=== PATIENT | female | born 1945 | race Caucasian/White ===

== ENCOUNTER 2016-12-10 16:04 | Observation (INO) | payer MEDICARE ==
[2016-12-10] MEDS ORDERED: IPRATROPIUM/ALBUTEROL (0.5MG/3MG) NEB INH ONE (17:04)
--- NOTE | 2016-12-10 17:11 | Emergency Department Record ---
History of Present Illness - General Chief complaint: Rash Stated complaint: RASH AND [place] Time Seen by Provider: 12/10/16 17:04 Source: Patient Mode of Arrival: Wheelchair Limitations: No limitations - History of Present Illness Initial comments: 71 yo female presents to ED with a CC of shortness of breath symptoms for the past 4-5 days. Patient reports that she saw her PCP 4 days ago, was started on Prednisone for her symptoms. Patient reports that her symptoms have not significantly improved however, and that she is out of breath with minimal effort. Patient denies chest pain, fevers, chills, or cough symptoms. Patient is unsure if she has COPD or not. Patient also complains of a rash to the left inner thigh region that has been present for several days as well. MD complaint: Rash Onset/Timin -: Days(s) Location: LLE (inguinal region) Severity: Moderate Severity scale (1-10): 7 Quality: Burning Consistency: Constant Improves with: None Worsens with: None Context: New medication Associated symptoms: Cough, Itching, Shortness of breath Treatments Prior to Arrival: None - Related Data Home Medications Medication Instructions Recorded Confirmed Last Taken Folic Acid 1 mg PO QD tab 01/26/16 12/10/16 12/10/16 Methotrexate Sodium [Methotrexate] 0.8 ml IM QWEEK ml 05/04/16 12/10/16 Cholecalciferol (Vitamin D3) 4,000 unit PO DAILY 12/10/16 12/10/16 12/10/16 [Vitamin D3] Previous Rx's Medication Instructions Recorded Aspirin [Aspirin EC] 81 mg PO DAILY #30 tablet. 01/19/15 Meclizine HCl [Antivert] 25 mg PO Q8H #21 tablet 10/02/15 Allergies Allergy/AdvReac Type Severity Reaction Status Date / Time No Known Drug Allergies Allergy Verified 12/10/16 16:32 Travel Screening - Travel/Exposure Within Last 30 Days Have you traveled within the last 30 days?: No Review of Systems Constitutional: Denies: Chills, Fever, Malaise, Night sweats Eyes: Denies: Eye discharge, Eye pain ENT: Denies: Congestion, Ear pain, Epistaxis Respiratory: Reports: Dyspnea. Denies: Wheezes Cardiovascular: Reports: Dyspnea on exertion. Denies: Chest pain, Palpitations Endocrine: Denies: Fatigue, Heat or cold intolerance Gastrointestinal: Denies: Abdominal pain, Nausea, Vomiting Genitourinary: Denies: Dysuria, Frequency, Hematuria, Incontinence Musculoskeletal: Denies: Arthralgia, Back pain, Gout, Joint swelling Skin: Denies: Bruising, Change in color Neurological: Denies: Abnormal gait, Confusion, Headache, Seizure Psychiatric: Denies: Anxiety Hematological/Lymphatic: Denies: Anemia, Blood Clots Past Medical History - SOCIAL HISTORY Smoking Status: Former smoker Alcohol Use: None Drug Use: None - RESPIRATORY Hx Respiratory Disorders: No Hx Sleep Apnea: Yes Hx of CPAP: Yes - CARDIOVASCULAR Hx Cardio Disorders: Yes Hx Hypertension: Yes - NEURO Hx Neuro Disorders: No - GI Hx GI Disorders: Yes Hx GI Bleed: Yes Hx Rectal Bleeding: Yes - Hx Genitourinary Disorders: No - ENDOCRINE Hx Endocrine Disorders: Yes Hx Diabetes: Yes Hx Thyroid Disease: Yes Comment:: borderline diabetic - MUSCULOSKELETAL Hx Musculoskeletal Disorders: Yes Hx Arthritis: Yes - PSYCH Hx Psych Problems: No - HEMATOLOGY/ONCOLOGY Hx Hematology/Oncology Disorders: No Family Medical History Any Significant Family History?: Yes Hx Alcohol Use: Father Hx Cancer: Father, Mother Hx Diabetes: Mother, Brother/Sister Hx Heart Disease: Mother, Brother/Sister Hx Kidney Disease: Father Hx Liver Disease: Brother/Sister Physical Exam - General General Appearance: Alert, Oriented x3, Cooperative, Moderate distress Limitations: No limitations - Head Head exam: Atraumatic, Normocephalic, Normal inspection Head exam detail: negative: Abrasion, Contusion, Baugh's sign, General tenderness, Hematoma, Laceration - Eye Eye exam: Normal appearance. negative: Conjunctival injection, Periorbital swelling, Periorbital tenderness, Scleral icterus - ENT Ear exam: negative: Auricular hematoma, Auricular trauma Nasal Exam: negative: Active bleeding, Discharge, Dried blood, Foreign body Mouth exam: negative: Drooling, Laceration, Muffled voice, Tongue elevation - Neck Neck exam: Normal inspection. negative: Meningismus, Tenderness - Respiratory Respiratory exam: Wheezes. negative: Respiratory distress, Rhonchi, Stridor - Cardiovascular Cardiovascular Exam: Regular rate, Normal rhythm, Normal heart sounds - GI/Abdominal GI/Abdominal exam: Soft. negative: Rebound, Rigid, Tenderness - Rectal Rectal exam: Deferred - exam: Deferred - Extremities Extremities exam: negative: Calf tenderness, Pedal edema, Tenderness - Back Back exam: Denies: CVA tenderness (R), CVA tenderness (L) - Neurological Neurological exam: Alert, Normal gait, Oriented X3 - Psychiatric Psychiatric exam: Normal affect, Normal mood - Skin Skin exam: Rash, Other (excoriated rash to the left inguinal groin region c/w yeast dermatitis) Type of lesion: negative: abrasion Course Vital Signs 12/10/16 16:26 Temperature 97.7 F Pulse Rate 95 H Respiratory 18 Rate Blood Pressure 177/94 Pulse Ox 95 - Reevaluation(s) Reevaluation #1: 12/10/16 17:26 EKG: NSR 89 Normal axis, normal intervals No acute ST-T wave changes are present Reevaluation #2: 12/10/16 18:43 CXR: No acute process Labs reviewed and are grossly unremarkable for an acute process. Will trial ambulation biox at this time. Reevaluation #3: 12/10/16 19:25 Attempted ambulation biox, patient oxygen saturation was 95-95%, patient became very dyspnic on examination. Will admit for observation and further evaluation of her COPD exacerbation. Case was discussed with Dania Shields, will accept admission for further evaluation. 12/10/16 19:28 Medical Decision Making - Lab Data Result diagrams: 12/10/16 17:26 12/10/16 17:26 Disposition Disposition: Admit Clinical Impression: COPD exacerbation, Yeast dermatitis Disposition: Still a Patient at [facility] Decision to Admit: Admit from ER Decision to Admit Date: 12/10/16 Decision to Admit Time: 19:28 Condition: (2) Stable Forms: Patient Portal Access Time of Disposition: 19:28
[2016-12-10 18:08] LABS: HEMATOCRIT 36.1 % (35.0-47.0); HEMOGLOBIN 11.5 gm/dl (11.6-16.0); MEAN CELL VOLUME 100.8 fl (81-97); MEAN CORPUSCULAR HEMOGLOBIN 32.1 pg (27-33); MEAN CORPUSCULAR HGB CONC 31.9 g/dl (32-36); MEAN PLATELET VOLUME 10.9 fl (7.4-10.4); PLATELET COUNT 274 K/uL (130-400); RED BLOOD COUNT 3.58 M/uL (3.80-5.40); RED CELL DISTRIBUTION WIDTH 14.9 % (11.5-14.5)
[2016-12-10 18:19] LABS: ALB/GLOB RATIO 1.5 (1.1-1.8); ALBUMIN 4.4 gm/dL (3.5-5.0); ALKALINE PHOSPHATASE 104 U/L (38-126); ALT/SGPT 28 U/L (9-52); ANION GAP 18.3 (7-16); AST/SGOT 18 U/L (14-36); BLOOD UREA NITROGEN 20 mg/dL (7-17); CARBON DIOXIDE 24.7 mmol/L (22-30); CREATINE PHOSPHOKINASE 31 U/L (30-135); CREATININE 0.9 mg/dL (0.52-1.04); EST GLOMERULAR FILTRATION RATE > 60 ml/min; GLUCOSE,RANDOM 139 mg/dL (70-110); TOTAL PROTEIN 7.3 gm/dL (6.3-8.2)
[2016-12-10 18:31] LABS: CKMB 0.5 ug/L (0-6); TROPONIN I < 0.012 ng/mL (0.00-0.034)
[2016-12-10] MEDS ORDERED: METHYLPREDNISOLONE PF 125MG/VIAL IVP ONE (19:29)
[2016-12-10] MEDS ORDERED: FOLIC ACID 1 MG TABLET PO SCH (20:55)
[2016-12-10] MEDS ORDERED: LEVOTHYROXINE SODIUM 50 MCG TABLET PO SCH (20:55)
[2016-12-10] MEDS ORDERED: IPRATROPIUM/ALBUTEROL (0.5MG/3MG) NEB INH PRN (20:55)
[2016-12-10] MEDS ORDERED: Non-Formulary MISC (Lisinopril/Hydrochlorothiazide [Lisinopril-Hctz 20-25 Mg Tab] 1 TAB) PO SCH (20:55)
[2016-12-10] MEDS ORDERED: Non-Formulary MISC (Atorvastatin Calcium [Atorvastatin Calcium] 40 MG) PO SCH (20:55)
[2016-12-10] MEDS ORDERED: 0.9 % SODIUM CHLORIDE 1000ML 1,000 ML IV PRN (20:55)
[2016-12-10] MEDS: MECLIZINE 25 MG TABLET PO SCH (22:00)
[2016-12-10] MEDS: NYSTATIN 15 GM POWDER TP SCH ×2 (22:00→22:47)
[2016-12-10] MEDS: ALBUTEROL SULFATE (0.083%) 2.5 MG/3 ML NEB INH SCH (22:21)
[2016-12-10] MEDS ORDERED: FLUCONAZOLE 100 MG TABLET PO ONE (22:52)
[2016-12-10] MEDS: ACETAMINOPHEN 500 MG TABLET PO PRN (22:57)
[2016-12-11] MEDS ORDERED: DIPHENHYDRAMINE HCL 25 MG CAPSULE PO ONE (01:56)
[2016-12-11] MEDS: ACETAMINOPHEN 500 MG TABLET PO PRN (04:27)
[2016-12-11] MEDS: MECLIZINE 25 MG TABLET PO SCH (04:28)
[2016-12-11] MEDS: ALBUTEROL SULFATE (0.083%) 2.5 MG/3 ML NEB INH SCH ×2 (06:15→09:51)
[2016-12-11] MEDS ORDERED: LEVOTHYROXINE SODIUM 50 MCG TABLET PO SCH ×2 (07:00→10:00)
[2016-12-11] MEDS ORDERED: LISINOPRIL 20 MG TABLET PO SCH (10:00)
[2016-12-11] MEDS ORDERED: CHLORTHALIDONE 25 MG TABLET PO SCH (10:00)
[2016-12-11] MEDS ORDERED: ESCITALOPRAM 10 MG TABLET PO SCH (10:00)
[2016-12-11] MEDS ORDERED: METHYLPREDNISOLONE PF 125MG/VIAL IVP SCH ×2 (10:00)
[2016-12-11] MEDS ORDERED: ATORVASTATIN 20 MG TABLET PO SCH (10:00)
[2016-12-11] MEDS ORDERED: LEVOFLOXACIN/D5W 750 MG in DEXTROSE 1 BAG IVPB SCH ×2 (10:00→22:00)
[2016-12-11] MEDS ORDERED: CHOLECALCIFEROL 1,000 UNIT TABLET PO SCH (10:00)
[2016-12-11] MEDS ORDERED: FOLIC ACID 1 MG TABLET PO SCH (10:00)
[2016-12-11] MEDS ORDERED: ASPIRIN 81 MG TABEC PO SCH (10:00)
[2016-12-11] MEDS ORDERED: MECLIZINE 25 MG TABLET PO PRN (10:06)
--- NOTE | 2016-12-11 10:16 | History & Physical ---
History of Present Illness - Date of Service Date of Service for History & Physical: 12/11/16 - History of Present Illness Admitting Diagnosis: COPD exacerbation. Yeast dermatitis History of Present Illness: 71yo female with CC of rash on her left groin and shortness of breath. Patient has a history of restrictive lung disease, HTN, T2DM, hypothyroidism, GI bleed, stress incontinence, osteoarthritis, psoriatic arthritis, anxiety and depression. Patient presented to the ED initially for the rash in her left inguinal region but was also having some shortness of breath. She was seen in the [facility] 3 days prior for runny nose, dry cough, sore throat and started on predisone taper. She then developed a rash in the inguinal region that has been burning and itching. She has had chronic dyspnea 2/2 lung disease but felt a little worse than baseline. While in the ED, patient had a repeat CXR that showed no acute process. Her WBC count was wnl and she was afebrile. hgb slightly low at 11.5. Oxygen saturation was 95% on room air and she was not hypoxic with ambulation. EKG showed normal sinus rhythm and CE was WNL. She was noted to have a candidal skin infection of inguinal area and pannus folds. She was given solumedrol 125mg IV and one dose of levaquin. She was admitted for a possible COPD exacerbation. 12/11/16- Patient states she feels pretty good this morning. Says she has not shortness of breath at all while at rest. She does have some SOB with exertion but says this is about her baseline. She reports sinus congestion, runny nose, sinus pressure, and a cough. The cough is mostly dry but occasionally gets some clear-white phlegm up. Says the rash is her biggest concern at the moment. It is very itchy and sahu. She has had rashes like this previously and this started after she was put on steroids. Her diabetes is typically controlled with diet. She has not been on metformin for a while. PCP: Roberta Travel Screening - Travel/Exposure Within Last 30 Days Have you traveled within the last 30 days?: No - Travel/Exposure Within Last Year Have you traveled outside the [place] in the last year?: No - Additonal Travel Details Have you been exposed to anyone with a communicable illness?: No - Travel Symptoms Symptom Screening: Fatigue, Rash Review of Systems Constitutional: Denies: Chills, Fever, Malaise, Night sweats Eyes: Denies: Eye discharge, Eye pain ENT: Reports: Congestion (sinus pain as well). Denies: Ear pain, Epistaxis Respiratory: Reports: Cough (dry), Dyspnea (at baseline). Denies: Wheezes Cardiovascular: Reports: Dyspnea on exertion (at baseline). Denies: Chest pain , Palpitations Endocrine: Denies: Fatigue, Heat or cold intolerance Gastrointestinal: Denies: Abdominal pain, Nausea, Vomiting Genitourinary: Denies: Dysuria, Frequency, Hematuria, Incontinence Musculoskeletal: Denies: Arthralgia, Back pain, Gout, Joint swelling Skin: Reports: Rash (left groin). Denies: Bruising, Change in color Neurological: Denies: Abnormal gait, Confusion, Headache, Seizure Psychiatric: Denies: Anxiety Hematological/Lymphatic: Denies: Anemia, Blood Clots Past Medical History - SOCIAL HISTORY Smoking Status: Never smoker Alcohol Use: Rare Drug Use: None - RESPIRATORY Hx Respiratory Disorders: No Hx COPD: No Hx Dyspnea: Yes (restrictive lung disease) Hx Sleep Apnea: Yes Hx of CPAP: Yes - CARDIOVASCULAR Hx Cardio Disorders: Yes Hx Hypertension: Yes - NEURO Hx Neuro Disorders: No - GI Hx GI Disorders: Yes Hx GI Bleed: Yes Hx Rectal Bleeding: Yes - Hx Genitourinary Disorders: No Comment:: stress/urge incontinenece - ENDOCRINE Hx Endocrine Disorders: Yes Hx Diabetes: Yes Hx Thyroid Disease: Yes Comment:: borderline diabetic - MUSCULOSKELETAL Hx Musculoskeletal Disorders: Yes Hx Arthritis: Yes (osteoarthritis and psoriatic) - PSYCH Hx Psych Problems: No Hx Anxiety: Yes Hx Depression: Yes - HEMATOLOGY/ONCOLOGY Hx Hematology/Oncology Disorders: No Family Medical History Any Significant Family History?: Yes Hx Alcohol Use: Father Hx Cancer: Father, Mother, Brother/Sister Hx Diabetes: Mother, Brother/Sister Hx Heart Disease: Mother, Brother/Sister Hx Kidney Disease: Father Hx Liver Disease: Brother/Sister H&P Meds/Allergies - Allergies Allergies: Allergies Allergy/AdvReac Type Severity Reaction Status Date / Time No Known Drug Allergies Allergy Verified 12/10/16 16:32 - Home Medications Home Medications Medication Instructions Recorded Confirmed Last Taken Folic Acid 1 mg PO DAILY tab 01/26/16 12/11/16 12/10/16 Methotrexate Sodium [Methotrexate] 0.8 ml IM QWEEK ml 05/04/16 12/10/16 Cholecalciferol (Vitamin D3) 4,000 unit PO DAILY 12/10/16 12/10/16 12/10/16 [Vitamin D3] Atorvastatin Calcium 40 mg PO DAILY 12/11/16 12/11/16 Unknown Levothyroxine Sodium 50 mcg PO DAILYTHY 12/11/16 12/11/16 Unknown Lisinopril/Hydrochlorothiazide 1 each PO DAILY 12/11/16 12/11/16 Unknown [Lisinopril-Hctz 20-25 mg Tab] Meclizine HCl [Antivert] 25 mg PO Q8H PRN 12/11/16 12/11/16 Unknown Previous Rx's Medication Instructions Recorded Aspirin [Aspirin EC] 81 mg PO DAILY #30 tablet. 01/19/15 - Active Medications Active Medications: Current Medications Acetaminophen (Tylenol 500mg Tab) 1,000 mg PO Q6H PRN PRN Reason: PAIN/TEMP Last Admin: 12/11/16 04:27 Dose: 1,000 mg Albuterol Sulfate () 2.5 mg INH RESP.Q4H.[facility] Last Admin: 12/11/16 09:51 Dose: 2.5 mg Albuterol/Ipratropium (Duoneb) 3 ml INH RESP.Q4H PRN PRN Reason: Wheezing Aspirin (Ecotrin (Ec)) 81 mg PO DAILY [facility] Last Admin: 12/11/16 09:13 Dose: 81 mg Atorvastatin Calcium (Lipitor) 40 mg PO DAILY [facility] Last Admin: 12/11/16 09:15 Dose: 40 mg Chlorthalidone (Chlorthalidone) 25 mg PO DAILY [facility] Last Admin: 12/11/16 09:13 Dose: 25 mg Escitalopram Oxalate (Lexapro) 20 mg PO DAILY [facility] Last Admin: 12/11/16 09:14 Dose: 20 mg Folic Acid () 1 mg PO DAILY [facility] Last Admin: 12/11/16 09:14 Dose: 1 mg Sodium Chloride () 1,000 mls @ 15 mls/hr IV .Q24H PRN PRN Reason: LARGE VOLUME IV Levofloxacin/Dextrose 750 mg/ (Glucose) 150 mls @ 125 mls/hr IVPB 2200 [facility] Stop: 12/16/16 10:01 [facility]othy[facility]ine [facility] Lisinopril (Zestril) 20 mg PO DAILY [facility] Last Admin: 12/11/16 09:18 Dose: 20 mg Meclizine HCl (Antivert) 25 mg PO Q8H PRN PRN Reason: DIZZINESS Methylprednisolone Sodium Succinate (Solu-Medrol) 60 mg IVP DAILY [facility] Nystatin (Nystop) 15 gm TP ASDIR [facility] Last Admin: 12/10/16 22:47 Dose: 15 gm Vitamin D (Vitamin D3) 4,000 unit PO DAILY [facility] Last Admin: 12/11/16 09:15 Dose: 4,000 unit Physical Exam - Vital Signs Vital Signs: Vital Signs - Last 24 Hrs Temp Pulse Pulse Pulse Resp BP BP 12/11/16 09:53 95 H 18 12/11/16 09:00 83 99 H 22 12/11/16 07:00 97.9 F 99 H 22 162/81 12/11/16 06:15 100 H 20 12/10/16 22:55 130/64 12/10/16 22:21 88 16 12/10/16 20:55 97.1 F L 83 18 181/101 Pulse Ox 12/11/16 09:53 98 12/11/16 09:00 12/11/16 07:00 94 L 12/11/16 06:15 12/10/16 22:55 12/10/16 22:21 12/10/16 20:55 95 - General General Appearance: Alert, Oriented x3, Cooperative, Moderate distress Limitations: No limitations - Head Head exam: Atraumatic, Normocephalic, Normal inspection Head exam detail: negative: Abrasion, Contusion, Baugh's sign, General tenderness, Hematoma, Laceration - Eye Eye exam: Normal appearance. negative: Conjunctival injection, Periorbital swelling, Periorbital tenderness, Scleral icterus - ENT Ear exam: negative: Auricular hematoma, Auricular trauma Nasal Exam: negative: Active bleeding, Discharge, Dried blood, Foreign body Mouth exam: negative: Drooling, Laceration, Muffled voice, Tongue elevation - Neck Neck exam: Normal inspection. negative: Meningismus, Tenderness - Respiratory Respiratory exam: Normal lung sounds bilaterally. negative: Accessory muscle use, Prolonged expiratory, Rales, Respiratory distress, Rhonchi, Stridor, Wheezes - Cardiovascular Cardiovascular Exam: Regular rate, Normal rhythm, Normal heart sounds - GI/Abdominal GI/Abdominal exam: Soft. negative: Rebound, Rigid, Tenderness - Rectal Rectal exam: Deferred - exam: Deferred - Extremities Extremities exam: negative: Calf tenderness, Pedal edema, Tenderness - Back Back exam: Denies: CVA tenderness (R), CVA tenderness (L) - Neurological Neurological exam: Alert, Normal gait, Oriented X3 - Psychiatric Psychiatric exam: Normal affect, Normal mood - Skin Skin exam: Rash, Other (excoriated rash to the left inguinal groin region c/w yeast dermatitis) Type of lesion: negative: abrasion Results - Labs Result Diagrams: 12/10/16 17:26 12/10/16 17:26 VTE H&P Assessment - Risk for VTE Risk for VTE: Yes Risk Level: Low Risk Assessment Date: 12/11/16 Risk Assessment Time: 11:05 VTE Orders Placed or Will Be Placed: Yes Plan - Detailed Diagnosis and Plan (1) Upper respiratory infection Current Visit: Yes Status: Acute Qualifiers: URI type: unspecified URI Qualified Code(s): J06.9 - Acute upper respiratory infection, unspecified Base Code: J06.9 - ACUTE UPPER RESPIRATORY INFECTION, UNSPECIFIED Comment: 12/11/16 improving. CXR negative for acute infiltrate or COPD changes. Patient has restrictive airway disease diagnosed with PFT and follows with pulmonology. she is satting 95% on RA and is at her baseline shortness of breath. Runny nose, sinus congestion and dry cough consistent with upper respiratory infection. WBC count wnl and patient remains afebrile. Received one dose of levaquin 750 while in the ED and was given solumedrol 125mg IV. -transition to oral azithromycin following z-pack instruction for 5 day course -discontinue steroids (no taper <5 days of steroids). she has not had any symptomatic improvement with use and it is causing significant candidal infection. -continue to use home albuterol inhaler 1-2 puffs q4H prn SOB. -monitor vitals q8H -repeat cbc and bmp stat -plan to d/c home today if continuing to improve (2) Yeast dermatitis Current Visit: Yes Status: Acute Base Code: B37.2 - CANDIDIASIS OF SKIN AND NAIL Comment: 12/11/16- signficant candidal skin infection of the pannus and left inguinal region. Patient reports onset following administration of prednisone. Has had similar rash in the past. -discontinue steroids -diflucan 150mg po given last night and nystatin powder applied topically -will likely need to repeat diflucan 150mg for 2 more doses q72H -has follow up with PCP on 12/14/16. (3) Full code status Current Visit: Yes Status: Acute Base Code: Z78.9 - OTHER SPECIFIED HEALTH STATUS Comment: 12/14/16- patient is full code (4) DVT prophylaxis Current Visit: Yes Status: Acute Base Code: [id number] - Comment: 12/11/16- patient is moderate risk with age and restricted mobility -will encourage frequent ambulation -add scd's
[2016-12-11 10:48] LABS: HEMATOCRIT 36.7 % (35.0-47.0); HEMOGLOBIN 12.1 gm/dl (11.6-16.0); MEAN CELL VOLUME 98.9 fl (81-97); MEAN CORPUSCULAR HEMOGLOBIN 32.6 pg (27-33); MEAN PLATELET VOLUME 10.4 fl (7.4-10.4); PLATELET COUNT 311 K/uL (130-400); RED BLOOD COUNT 3.71 M/uL (3.80-5.40); RED CELL DISTRIBUTION WIDTH 14.7 % (11.5-14.5); WHITE BLOOD COUNT W/O DIFF 15.2 K/uL (4.2-12.2)
[2016-12-11 10:59] LABS: ANION GAP 19.6 (7-16); BLOOD UREA NITROGEN 23 mg/dL (7-17); CARBON DIOXIDE 23.4 mmol/L (22-30); CREATININE 0.9 mg/dL (0.52-1.04); EST GLOMERULAR FILTRATION RATE > 60 ml/min; GLUCOSE,RANDOM 228 mg/dL (70-110)
[2016-12-11 11:06] LABS: PLATELET ESTIMATE NORMAL (NORMAL)
--- NOTE | 2016-12-11 11:23 | Discharge Summary ---
Providers Discharge Summary Date: 12/11/16 Date of admission: 12/10/16 20:38 Expected Date of Discharge: 12/11/16 Attending physician: CHRISTIAN BOO Primary care physician: CHRISTIAN BOO Physical Exam - Vital Signs Vital Signs: Vital Signs - Last 24 Hrs Temp Pulse Pulse Pulse Resp BP BP 12/11/16 09:53 95 H 18 12/11/16 09:00 83 99 H 22 12/11/16 07:00 97.9 F 99 H 22 162/81 12/11/16 06:15 100 H 20 12/10/16 22:55 130/64 12/10/16 22:21 88 16 12/10/16 20:55 97.1 F L 83 18 181/101 Pulse Ox 12/11/16 09:53 98 12/11/16 09:00 12/11/16 07:00 94 L 12/11/16 06:15 12/10/16 22:55 12/10/16 22:21 12/10/16 20:55 95 - General General Appearance: Alert, Oriented x3, Cooperative, Moderate distress Limitations: No limitations - Head Head exam: Atraumatic, Normocephalic, Normal inspection Head exam detail: negative: Abrasion, Contusion, Baugh's sign, General tenderness, Hematoma, Laceration - Eye Eye exam: Normal appearance. negative: Conjunctival injection, Periorbital swelling, Periorbital tenderness, Scleral icterus - ENT Ear exam: negative: Auricular hematoma, Auricular trauma Nasal Exam: negative: Active bleeding, Discharge, Dried blood, Foreign body Mouth exam: negative: Drooling, Laceration, Muffled voice, Tongue elevation - Neck Neck exam: Normal inspection. negative: Meningismus, Tenderness - Respiratory Respiratory exam: Normal lung sounds bilaterally. negative: Accessory muscle use, Prolonged expiratory, Rales, Respiratory distress, Rhonchi, Stridor, Wheezes - Cardiovascular Cardiovascular Exam: Regular rate, Normal rhythm, Normal heart sounds - GI/Abdominal GI/Abdominal exam: Soft. negative: Rebound, Rigid, Tenderness - Rectal Rectal exam: Deferred - exam: Deferred - Extremities Extremities exam: negative: Calf tenderness, Pedal edema, Tenderness - Back Back exam: Denies: CVA tenderness (R), CVA tenderness (L) - Neurological Neurological exam: Alert, Normal gait, Oriented X3 - Psychiatric Psychiatric exam: Normal affect, Normal mood - Skin Skin exam: Rash, Other (excoriated rash to the left inguinal groin region c/w yeast dermatitis) Type of lesion: negative: abrasion Hospitalization - Hospitalization Admission Diagnosis: COPD exacerbation. Yeast dermatitis - Problem List/Discharge Diagnosis (1) Upper respiratory infection Current Visit: Yes Status: Acute Discharge Diagnosis: URI type: unspecified URI Qualified Code(s): J06.9 - Acute upper respiratory infection, unspecified Base Code: J06.9 - ACUTE UPPER RESPIRATORY INFECTION, UNSPECIFIED Comment: 12/11/16 improving. CXR negative for acute infiltrate or COPD changes. Patient has restrictive airway disease diagnosed with PFT and follows with pulmonology. she is satting 95% on RA and is at her baseline shortness of breath. Runny nose, sinus congestion and dry cough consistent with upper respiratory infection. WBC count wnl at arrival and up to 15 today following 125mg of solumedrol in the ED. patient remains afebrile. Received one dose of levaquin 750 while in the ED. -will plan to discharge home today with pcp follow up in 3 days as previously scheduled. -transition to oral azithromycin following z-pack instruction for 5 day course -discontinue steroids (no taper <5 days of steroids). she has not had any symptomatic improvement with use and it is causing significant candidal infection. -continue to use home albuterol inhaler 1-2 puffs q4H prn SOB. (2) Yeast dermatitis Current Visit: Yes Status: Acute Base Code: B37.2 - CANDIDIASIS OF SKIN AND NAIL Comment: 12/11/16- signficant candidal skin infection of the pannus and left inguinal region. Patient reports onset following administration of prednisone. Has had similar rash in the past. -discontinue steroids -diflucan 150mg po given last night and nystatin powder applied topically -will likely need to repeat diflucan 150mg for 2 more doses q72H -has follow up with PCP on 12/14/16. (3) Full code status Current Visit: Yes Status: Acute Base Code: Z78.9 - OTHER SPECIFIED HEALTH STATUS Comment: 12/14/16- patient is full code (4) DVT prophylaxis Current Visit: Yes Status: Acute Base Code: [id number] - Comment: 12/11/16- patient is moderate risk with age and restricted mobility -will encourage frequent ambulation -add scd's - Hospitalization Course Disposition: Home, Self-Care Hospital Course: 71yo female with CC of rash on her left groin and shortness of breath. Patient has a history of restrictive lung disease, HTN, T2DM, hypothyroidism, GI bleed, stress incontinence, osteoarthritis, psoriatic arthritis, anxiety and depression. Patient presented to the ED initially for the rash in her left inguinal region but was also having some shortness of breath. She was seen in the [facility] 3 days prior for runny nose, dry cough, sore throat and started on predisone taper. She then developed a rash in the inguinal region that has been burning and itching. She has had chronic dyspnea 2/2 lung disease but felt a little worse than baseline. While in the ED, patient had a repeat CXR that showed no acute process. Her WBC count was wnl and she was afebrile. hgb slightly low at 11.5. Oxygen saturation was 95% on room air and she was not hypoxic with ambulation. EKG showed normal sinus rhythm and CE was WNL. She was noted to have a candidal skin infection of inguinal area and pannus folds. She was given solumedrol 125mg IV and one dose of levaquin. She was admitted for a possible COPD exacerbation. 12/11/16- Patient states she feels pretty good this morning. Says she has not shortness of breath at all while at rest. She does have some SOB with exertion but says this is about her baseline. She reports sinus congestion, runny nose, sinus pressure, and a cough. The cough is mostly dry but occasionally gets some clear-white phlegm up. Says the rash is her biggest concern at the moment. It is very itchy and sahu. She has had rashes like this previously and this started after she was put on steroids. Her diabetes is typically controlled with diet. She has not been on metformin for a while. Abnormal Labs: Abnormal Lab Results 12/11/16 Range/Units 10:42 WBC 15.2 H (4.2-12.2) K/uL RBC 3.71 L (3.80-5.40) M/uL MCV 98.9 H (81-97) fl RDW 14.7 H (11.5-14.5) % Neutrophils % 83.0 H (47-80) % Lymphocytes % 14.0 L (16-45) % Condition at Discharge: (2) Stable Discharge Medications - Discharge Medications Prescriptions: Azithromycin 250 mg PO ASDIR #6 tablet Fluconazole [Diflucan] 150 mg PO Q72H #2 tablet Nystatin [Nystop] 15 gm TP ASDIR #1 powder Albuterol Sulfate [Proair Hfa] 1 - 2 puff IH Q4-6HR PRN #1 inhaler PRN Reason: Difficulty In Breathing Home Medications: Ambulatory Orders Aspirin [Aspirin EC] 81 mg PO DAILY #30 tablet. 01/19/15 [Last Taken 12/10/16] Folic Acid 1 mg PO DAILY tab 01/26/16 [Last Taken 12/10/16] Methotrexate Sodium [Methotrexate] 0.8 ml IM QWEEK ml 05/04/16 [Last Taken 03/21] Cholecalciferol (Vitamin D3) [Vitamin D3] 4,000 unit PO DAILY 12/10/16 [Last Taken 12/10/16] Albuterol Sulfate [Proair Hfa] 1 - 2 puff IH Q4-6HR PRN #1 inhaler 12/11/16 [ Last Taken Unknown] Atorvastatin Calcium 40 mg PO DAILY 12/11/16 [Last Taken Unknown] Azithromycin 250 mg PO ASDIR #6 tablet 12/11/16 [Last Taken Unknown] Fluconazole [Diflucan] 150 mg PO Q72H #2 tablet 12/11/16 [Last Taken Unknown] Levothyroxine Sodium 50 mcg PO DAILYTHY 12/11/16 [Last Taken Unknown] Lisinopril/Hydrochlorothiazide [Lisinopril-Hctz 20-25 mg Tab] 1 each PO DAILY [Last Taken Unknown] Meclizine HCl [Antivert] 25 mg PO Q8H PRN 12/11/16 [Last Taken Unknown] Nystatin [Nystop] 15 gm TP ASDIR #1 powder 12/11/16 [Last Taken Unknown] Discharge Plan - Discharge Instructions Activity at Discharge: Resume Usual Activities As Tolerated Diet at Discharge: Diabetic Diet Instructions: Nystatin (On the skin), Azithromycin (By mouth), Upper Respiratory Infection (DC), Vulvovaginal Candidiasis (GEN) Additional Instructions: 2 Activity: Resume Usual Activities As Tolerated 2 Diet: Diabetic Diet 2 Consults: [] 2 Follow Up: [] 2 Dressing/Wound Care: (Type) (Change) 2 Additional: [] Start Z-pack today according to package instructions continue to use nystatin powder on the affected area 3-4 times daily Take diflucan 150mg by mouth every 72 hours for 2 more doses (next dose Sunday evening) discontinue the prednisone Follow up with Dr. Baca on the as previously scheduled
[2016-12-12] MEDS ORDERED: LEVOTHYROXINE SODIUM 50 MCG TABLET PO SCH (07:00)
--- NOTE | 2016-12-12 07:31 | RADIOLOGY REPORT ---
EXAM: AP CHEST HISTORY: DIFFICULTY BREATHING. TECHNIQUE: AP view of the chest was obtained. Comparison: Chest x-ray 10/11/16. FINDINGS: Compromised study due to lordotic positioning. The lungs are grossly clear. The cardiomediastinal silhouette is not enlarged. Chronic elevation of the right hemidiaphragm. The osseous structures are unremarkable. IMPRESSION: CHRONIC ELEVATION OF THE RIGHT HEMIDIAPHRAGM. NO ACUTE PROCESS. JOB NUMBER: [id number] MTDD
== END 2016-12-11 13:30 | disposition home or self-care (01) ==
LOC: ER 16:04 → MEDSURG 20:38
PROVIDERS: ADMIT Family Medicine; ATTEND Family Medicine
DX: J06.9 Acute upper respiratory infection, unspecified (principal); J44.9 Chronic obstructive pulmonary disease, unspecified; I10 Essential (primary) hypertension; E11.9 Type 2 diabetes mellitus without complications; B37.2 Candidiasis of skin and nail; Z78.9 Other specified health status
CPT/HCPCS: 99285 ×2; 96374; 82550; 82553; 84484; 80048; 80053; 85027 ×2; 83880; 71010; 94640 ×3; 93005; 93010; G0378 ×2; J1956; 99220; J2930; J7613

== ENCOUNTER 2017-11-22 13:06 | Day surgery (SDC) | payer MEDICARE ==
[2017-11-22] MEDS ORDERED: MIDAZOLAM HCL 2MG/2ML VIAL IV ONE (13:07)
[2017-11-22] MEDS ORDERED: PROPOFOL 10 MG/ML VIAL IV ONE (13:07)
[2017-11-22] MEDS ORDERED: LIDOCAINE 2% MDV (20MG/ML) 20ML VIAL IV ONE (13:07)
--- NOTE | 2017-11-23 13:20 | Operative Note ---
DATE OF SURGERY: 11/22/2017 OPERATION: COLONOSCOPY with cold snare polypectomy. PREOPERATIVE DIAGNOSIS: History of polyps. POSTOPERATIVE DIAGNOSES: 1. Descending colon polyp, status post cold snare. 2. Colonic diverticulosis, left side greater than right. PROCEDURE: After informed consent was obtained from the patient, she was placed in the left lateral decubitus position in the endoscopy suite, sedated and monitored by the department of anesthesia. Digital rectal exam was unremarkable. A well-lubricated [id number] colonoscope was inserted into the rectum and advanced to the cecum. Preparation quality was good. The cecum and ascending colon and transverse colon were unremarkable. There were scattered diverticula throughout the colon most prominently seen in the left colon and sigmoid colon in particular. In the descending colon, there was a 5 mm sessile polyp removed in piecemeal fashion with a cold snare. Minimal bleeding was noted at the site. The remainder of the descending colon, sigmoid colon, and rectum were unremarkable other than the aforementioned diverticular changes. J-turn views of the anorectum were unremarkable. The endoscope was straightened, the rectal ampulla deflated, and the endoscope was removed. RECOMMENDATIONS: I would suggest that the patient follow a high-fiber diet. I would recommend repeat colonoscopy in 3 to 5 years pending tissue histology. As always, thank you for allowing me to participate in the healthcare of your patients. CC: Dania BALBUENA
== END 2017-11-22 15:30 | disposition home or self-care (01) ==
LOC: HOP 13:06
PROVIDERS: ATTEND Internal Medicine Gastroenterology
DX: Z12.11 Encounter for screening for malignant neoplasm of colon (principal); Z86.010 Personal history of colon polyps; D12.4 Benign neoplasm of descending colon; K57.30 Diverticulosis of large intestine without perforation or abscess without bleeding; I10 Essential (primary) hypertension; E78.00 Pure hypercholesterolemia, unspecified

== ENCOUNTER 2018-03-06 02:42 | Emergency (ER) | payer MEDICARE ==
--- NOTE | 2018-03-06 03:33 | Emergency Department Record ---
History of Present Illness - General Chief complaint: Rash Stated complaint: RASH Time Seen by Provider: 03/06/18 03:29 Source: Patient Mode of Arrival: Ambulatory Limitations: No limitations - History of Present Illness Initial comments: 72 yo female presents to ED for evaluation of a rash to the inner thighs and vulvovaginal areas that has been present for 2 weeks. Patient was diagnosed with yeast dermatitis, currently undergoing treatment with nystatin powder twice daily. Patient reports that her symptoms have not significantly improved , reports that her pain and irritation symptoms are worsening and she is unable to get comfortable. Patient denies history of DM, reports her routine labs 3 months ago appears normal. MD complaint: Rash Onset/Timin -: Days(s) Hx Tetanus Toxoid Vaccination: Yes Year of Tetanus Vaccination: unsure of exact year Location: Genitals Severity: Moderate Severity scale (1-10): 7 Quality: Burning Consistency: Constant Improves with: Cold therapy Worsens with: Immobilization, Movement Context: None Associated symptoms: Itching Treatments Prior to Arrival: Other Treatment Prior to Arrival Comment:: nystatin - Related Data Previous Rx's Medication Instructions Recorded Aspirin [Aspirin EC] 81 mg PO DAILY #30 tablet. 01/19/15 Albuterol Sulfate [Proair Hfa] 1 - 2 puff IH Q4-6HR PRN #1 inhaler 12/11/16 Fluconazole [Diflucan] 150 mg PO ONCE #1 tab 03/06/18 Allergies Allergy/AdvReac Type Severity Reaction Status Date / Time No Known Drug Allergies Allergy Unverified 02/25/18 13:24 Travel Screening - Travel/Exposure Within Last 30 Days Have you traveled within the last 30 days?: No - Travel/Exposure Within Last Year Have you traveled outside the [place] in the last year?: No - Additonal Travel Details Have you been exposed to anyone with a communicable illness?: No - Travel Symptoms Symptom Screening: None Review of Systems Constitutional: Denies: Chills, Fever, Malaise, Night sweats Eyes: Denies: Eye discharge, Eye pain ENT: Denies: Congestion, Ear pain, Epistaxis Respiratory: Denies: Cough, Dyspnea Cardiovascular: Denies: Chest pain, Dyspnea on exertion Endocrine: Denies: Fatigue, Heat or cold intolerance Gastrointestinal: Denies: Abdominal pain, Nausea, Vomiting Genitourinary: Denies: Incontinence, Retention Musculoskeletal: Denies: Arthralgia, Back pain Skin: Reports: Change in color, Pruritus, Rash. Denies: Bruising, Change in hair/nails Neurological: Denies: Abnormal gait, Confusion, Headache, Seizure Psychiatric: Denies: Anxiety Hematological/Lymphatic: Denies: Anemia, Blood Clots Past Medical History - SOCIAL HISTORY Smoking Status: Never smoker Alcohol Use: None Drug Use: None - RESPIRATORY Hx Respiratory Disorders: No Hx Dyspnea: Yes (restrictive lung disease) Hx Sleep Apnea: Yes Hx of CPAP: Yes Comment:: right lung is smaller than left - CARDIOVASCULAR Hx Cardio Disorders: Yes Hx Hypertension: Yes - NEURO Hx Neuro Disorders: No - GI Hx GI Disorders: Yes Hx GI Bleed: Yes Hx Rectal Bleeding: Yes - Hx Genitourinary Disorders: No Comment:: stress/urge incontinenece - ENDOCRINE Hx Endocrine Disorders: Yes Comment:: borderline diabetic - MUSCULOSKELETAL Hx Musculoskeletal Disorders: Yes Hx Arthritis: Yes (osteoarthritis and psoriatic) - PSYCH Hx Psych Problems: Yes Hx Anxiety: Yes Hx Depression: Yes - HEMATOLOGY/ONCOLOGY Hx Hematology/Oncology Disorders: No Family Medical History Any Significant Family History?: No Hx Diabetes: Mother, Brother/Sister Physical Exam - General General Appearance: Alert, Oriented x3, Cooperative, Moderate distress Limitations: No limitations - Head Head exam: Atraumatic, Normocephalic, Normal inspection Head exam detail: negative: Abrasion, Contusion, Baugh's sign, General tenderness, Hematoma, Laceration - Eye Eye exam: Normal appearance. negative: Conjunctival injection, Periorbital swelling, Periorbital tenderness, Scleral icterus - ENT Ear exam: negative: Auricular hematoma, Auricular trauma Nasal Exam: negative: Active bleeding, Discharge, Dried blood, Foreign body Mouth exam: negative: Drooling, Laceration, Muffled voice, Tongue elevation - Neck Neck exam: Normal inspection. negative: Meningismus, Tenderness - Respiratory Respiratory exam: Normal lung sounds bilaterally. negative: Rales, Respiratory distress, Rhonchi, Stridor - Cardiovascular Cardiovascular Exam: Regular rate, Normal rhythm, Normal heart sounds - GI/Abdominal GI/Abdominal exam: Soft. negative: Rebound, Rigid, Tenderness - Rectal Rectal exam: Deferred - exam: Deferred - Extremities Extremities exam: Normal inspection. negative: Calf tenderness, Pedal edema, Tenderness - Back Back exam: Denies: CVA tenderness (R), CVA tenderness (L) - Neurological Neurological exam: Alert, Normal gait, Oriented X3 - Psychiatric Psychiatric exam: Normal affect, Normal mood - Skin Skin exam: Erythema, Rash, Other (Moderate to severe yeast dermatitis to the groin and inner thighs.) Type of lesion: negative: abrasion Course Vital Signs 03/06/18 03:04 Temperature 97.8 F Pulse Rate [ 95 H Pulse Ox Probe] Respiratory 24 Rate Blood Pressure 149/83 [Left Arm] Pulse Ox 96 - Reevaluation(s) Reevaluation #1: 03/06/18 03:39 Patient was seen and examined, will initiate treatment with Diflucan for moderate-severe yeast dermatitis with failed topical treatment. Repeat dose for 72 hours was ordered as well. Patient appears stable for discharge at this time. Disposition Disposition: Discharge Clinical Impression: Yeast dermatitis Disposition: Home, Self-Care Condition: (2) Stable Instructions: Skin Yeast Infection (ED) Additional Instructions: Return to ED if your symptoms worsen or if you have any concerns. Diflucan as directed in 72 hours. Follow-up with your family doctor in 3-5 days as directed. Prescriptions: Fluconazole [Diflucan] 150 mg PO ONCE #1 tab Forms: Patient Portal Access Time of Disposition: 03:33 Quality - Quality Measures Quality Measures: N/A - Blood Pressure Screening Does Patient Have Any of the Following: No Blood Pressure Classification: Pre-Hypertensive BP Reading Systolic Measurement: 149 Diastolic Measurement: 83 Screening for High Blood Pressure: < Pre-Hypertensive BP, F/U Documented > [ [id number]] Pre-Hypertensive Follow-up Interventions: Referral to alternative/primary care provider.
[2018-03-06] MEDS: FLUCONAZOLE 100 MG TABLET PO ONE (03:36)
== END 2018-03-06 03:45 | disposition home or self-care (01) ==
LOC: ER 02:42
DX: B37.3 Candidiasis of vulva and vagina (principal); B37.2 Candidiasis of skin and nail; I10 Essential (primary) hypertension
CPT/HCPCS: 99283

== ENCOUNTER 2018-09-18 11:20 | Emergency (ER) | payer MEDICARE ==
[2018-09-18] MEDS ORDERED: Diph,Pert(Acell),Tet Vac 0.5 ML SYR IM ONE (11:28)
--- NOTE | 2018-09-18 11:52 | Emergency Department Record ---
History of Present Illness - General Chief Complaint: Fall Injury Stated Complaint: FELL AT GAS STATION/HIT FACE Time Seen by Provider: 09/18/18 11:27 Mode of Arrival: Ambulatory - History of Present Illness Initial Comments: fall at the gas station one hour [employer] and swollen nose , No neck pain chest of back pain and ambulating without problems. MD Complaint: Fall Onset/Timin -: Minutes(s) Fall From: Standing When Fall Occurred: Just prior to arrival Fall Witnessed: Yes, by bystander Place Fall Occurred: Street Prolonged Down Time?: No Location: Face, Other Severity scale (1-10): 8 Associated Symptoms: Denies - [place] Coma Scale Eye Response: (4) Open spontaneously Motor Response: (6) Obeys commands Verbal Response: (5) Oriented Lul Total: 15 - Related Data Previous Rx's Medication Instructions Recorded Aspirin [Aspirin EC] 81 mg PO DAILY #30 tablet. 01/19/15 Allergies Allergy/AdvReac Type Severity Reaction Status Date / Time No Known Drug Allergies Allergy Verified 09/18/18 11:36 Travel Screening - Travel/Exposure Within Last 30 Days Have you traveled within the last 30 days?: No - Travel/Exposure Within Last Year Have you traveled outside the [place] in the last year?: No - Additonal Travel Details Have you been exposed to anyone with a communicable illness?: No - Travel Symptoms Symptom Screening: None Review of Systems Reviewed: No additional complaints except as noted below Constitutional: Reports: As per HPI. Denies: Chills, Fever, Malaise, Night sweats, Weakness, Weight change Eyes: Reports: As per HPI. Denies: Eye discharge, Eye pain, Photophobia, Vision change ENT: Reports: As per HPI. Denies: Congestion, Dental pain, Ear pain, Epistaxis , Hearing loss, Throat pain Respiratory: Reports: As per HPI. Denies: Cough, Dyspnea, Hemoptysis, Stridor, Wheezes Cardiovascular: Reports: As per HPI. Denies: Arrhythmia, Chest pain, Dyspnea on exertion, Edema, Murmurs, Orthopnea, Palpitations, Paroxysmal nocturnal dyspnea, Rheumatic Fever, Syncope Endocrine: Reports: As per HPI. Denies: Fatigue, Heat or cold intolerance, Polydipsia, Polyuria Gastrointestinal: Reports: As per HPI. Denies: Abdominal pain, Constipation, Diarrhea, Hematemesis, Hematochezia, Melena, Nausea, Vomiting Genitourinary: Reports: As per HPI. Denies: Abnormal menses, Discharge, Dyspareunia, Dysuria, Frequency, Hematuria, Incontinence, Retention, Urgency Musculoskeletal: Reports: As per HPI. Denies: Arthralgia, Back pain, Gout, Joint swelling, Myalgia, Neck pain Skin: Reports: As per HPI. Denies: Bruising, Change in color, Change in hair/ nails, Lesions, Pruritus, Rash Neurological: Reports: As per HPI. Denies: Abnormal gait, Confusion, Headache, Numbness, Paresthesias, Seizure, Tingling, Tremors, Vertigo, Weakness Psychiatric: Reports: As per HPI. Denies: Anxiety, Auditory hallucinations, Depression, Homicidal thoughts, Suicidal thoughts, Visual hallucinations Hematological/Lymphatic: Reports: As per HPI. Denies: Anemia, Blood Clots, Easy bleeding, Easy bruising, Swollen glands Past Medical History - SOCIAL HISTORY Smoking Status: Never smoker Alcohol Use: None Drug Use: None - RESPIRATORY Hx Respiratory Disorders: No Hx Dyspnea: Yes (restrictive lung disease) Hx Sleep Apnea: Yes Hx of CPAP: Yes Comment:: right lung is smaller than left - CARDIOVASCULAR Hx Cardio Disorders: Yes Hx Hypertension: Yes - NEURO Hx Neuro Disorders: No - GI Hx GI Disorders: Yes Hx GI Bleed: Yes Hx Rectal Bleeding: Yes - Hx Genitourinary Disorders: No Comment:: stress/urge incontinenece - ENDOCRINE Hx Endocrine Disorders: Yes Comment:: borderline diabetic - MUSCULOSKELETAL Hx Musculoskeletal Disorders: Yes Hx Arthritis: Yes (osteoarthritis and psoriatic) - PSYCH Hx Psych Problems: Yes Hx Anxiety: Yes Hx Depression: Yes - HEMATOLOGY/ONCOLOGY Hx Hematology/Oncology Disorders: No Family Medical History Any Significant Family History?: No Hx Diabetes: Mother, Brother/Sister Physical Exam - General General Appearance: Alert, Oriented x3, Cooperative, No acute distress - Head Head exam: Normal inspection - Eye Eye exam: Normal appearance, PERRL Pupils: Normal accommodation - ENT ENT exam: Normal exam, Mucous membranes moist, Normal external ear exam, Normal orophraynx, TM's normal bilaterally Ear exam: Normal external inspection. negative: External canal tenderness Nasal Exam: Normal inspection. negative: Discharge, Sinus tenderness Mouth exam: Normal external inspection, Tongue normal Teeth exam: Normal inspection. negative: Dental caries Throat exam: Normal inspection. negative: Tonsillar erythema, Tonsillar exudate - Neck Neck exam: Normal inspection, Full ROM. negative: Tenderness - Respiratory Respiratory exam: Normal lung sounds bilaterally. negative: Respiratory distress - Cardiovascular Cardiovascular Exam: Regular rate, Normal rhythm, Normal heart sounds - GI/Abdominal GI/Abdominal exam: Soft, Normal bowel sounds. negative: Tenderness - Rectal Rectal exam: Deferred - exam: Deferred - Extremities Extremities exam: Normal inspection, Full ROM, Normal capillary refill. negative: Tenderness - Back Back exam: Reports: Normal inspection, Full ROM. Denies: Muscle spasm, Rash noted, Tenderness - Neurological Neurological exam: Alert, Normal gait, Oriented X3, Reflexes normal - Psychiatric Psychiatric exam: Normal affect, Normal mood - Skin Skin exam: Dry, Intact, Normal color, Warm Course Vital Signs 09/18/18 11:27 Temperature 97.7 F Pulse Rate 106 H Respiratory 20 Rate Blood Pressure 188/84 Pulse Ox 95 Disposition Clinical Impression: Nasal fracture Qualifiers: Encounter type: initial encounter Fracture type: closed Qualified Code(s): S02.2XXA - Fracture of nasal bones, initial encounter for closed fracture Disposition: Home, Self-Care Condition: (1) Good Instructions: Nasal Fracture (ED) Additional Instructions: follow up with family Dr in man week use tylenol or motrin for pain ice to the nose Forms: Patient Portal Access Time of Disposition: 12:15 Quality - Quality Measures Quality Measures: Blunt Head Trauma (>2yr) - Blunt Head Trauma - Adult Quality Measure: Measure #415: Utilization of CT for Minor Blunt Head Trauma ICD10 Codes Entered: Yes Was CT ordered: No Does Patient Have Any of the Following: No Exclusions Lul Score: Please complete Lul Coma Scale above Utilization of CT for Minor Blunt Head Trauma: Not Eligible For Measure Additional Inclusion Criteria: More than 24hrs (OR) GCS not 15 (OR) CT not ordered. Not Eligible Reason: CT Not Ordered - Blood Pressure Screening Does Patient Have Any of the Following: No, Active Dx of HTN Blood Pressure Classification: Pre-Hypertensive BP Reading Systolic Measurement: 188 Diastolic Measurement: 84 Screening for High Blood Pressure: Patient Exclusion, Hx of HTN [G9744]
--- NOTE | 2018-09-19 09:33 | RADIOLOGY REPORT ---
EXAM: NASAL BONES HISTORY: PAIN. TECHNIQUE: Four views of the nasal bones were performed. FINDINGS: No evidence of fracture or dislocation. No lytic or blastic lesion. IMPRESSION: NEGATIVE NASAL BONE EXAMINATION. JOB NUMBER: [id number] MTDD
== END 2018-09-18 12:35 | disposition home or self-care (01) ==
LOC: ER 11:20
DX: S02.2XXA Fracture of nasal bones, initial encounter for closed fracture (principal); W00.0XXA Fall on same level due to ice and snow, initial encounter; Y92.524 Gas station as the place of occurrence of the external cause; I10 Essential (primary) hypertension
CPT/HCPCS: 70160; 90715; 96372; 99283

== ENCOUNTER 2019-03-17 10:34 | Observation (INO) | payer MEDICARE ==
[2019-03-17 10:47] LABS: ABSOLUTE NEUTROPHIL COUNT 6.61; EOS % 0.8 % (0-6); GRAN % 67.8 % (47-80); HEMATOCRIT 37.5 % (35.0-47.0); HEMOGLOBIN 12.3 gm/dl (11.6-16.0); LYMPH % 21.3 % (16-45); MEAN CELL VOLUME 98.2 fl (81-97); MEAN CORPUSCULAR HEMOGLOBIN 32.2 pg (27-33); MEAN CORPUSCULAR HGB CONC 32.8 g/dl (32-36); MEAN PLATELET VOLUME 11.1 fl (7.4-10.4); MONO % 9.1 % (0-9); PLATELET COUNT 301 K/uL (130-400); RED BLOOD COUNT 3.82 M/uL (3.80-5.40); RED CELL DISTRIBUTION WIDTH 14.4 % (11.5-14.5); WHITE BLOOD COUNT W/O DIFF 9.8 K/uL (4.2-12.2)
[2019-03-17] MEDS ORDERED: METHYLPREDNISOLONE PF 125MG/VIAL IVP ONE (10:49)
[2019-03-17] MEDS ORDERED: IPRATROPIUM/ALBUTEROL (0.5MG/3MG) NEB INH ONE (10:49)
--- NOTE | 2019-03-17 10:54 | Emergency Department Record ---
History of Present Illness - General Chief Complaint: Shortness of breath Stated Complaint: SOB Time Seen by Provider: 03/17/19 10:35 Source: Patient Mode of Arrival: EMS Limitations: No limitations - History of Present Illness Initial Comments: 73 yo female presents with progressive cough and shortness of breath for the last 5-6 days. She has green productive sputum. She feels short of breath with any activity. No fever that she is aware of at home. She does not smoke. She denies known underlying heart or lung disease. Her PCP is Dr Platt. Per EMS she lives alone. She was seen at the [facility] last Sunday. She has been on an antibiotic since then. She does have restrictive lung disease. She saw a chart changer in the past. MD Complaint: Cough -: Days(s) Severity: Moderate Quality: Other Improves With: Nothing Worsens With: Nothing Known History Of: Other Associated Symptoms: Cough Treatments Prior to Arrival: None - Related Data Home Oxygen Therapy: No Previous Rx's Medication Instructions Recorded Aspirin [Aspirin EC] 81 mg PO DAILY #30 tablet. 01/19/15 Allergies Allergy/AdvReac Type Severity Reaction Status Date / Time No Known Drug Allergies Allergy Verified 03/17/19 10:38 Travel Screening - Travel/Exposure Within Last 30 Days Have you traveled within the last 30 days?: No Review of Systems Constitutional: Denies: Chills, Fever, Malaise, Weakness Eyes: Denies: Eye discharge, Eye pain, Photophobia, Vision change ENT: Reports: Congestion Respiratory: Reports: Cough, Dyspnea, Wheezes Cardiovascular: Reports: Dyspnea on exertion. Denies: Chest pain, Palpitations, Syncope Endocrine: Reports: Fatigue. Denies: Polydipsia, Polyuria Gastrointestinal: Denies: Abdominal pain, Diarrhea, Nausea, Vomiting Genitourinary: Denies: Dysuria Musculoskeletal: Denies: Arthralgia, Back pain, Joint swelling, Myalgia Neurological: Denies: Confusion, Headache, Weakness Psychiatric: Denies: Anxiety Hematological/Lymphatic: Denies: Blood Clots, Easy bleeding, Easy bruising, Swollen glands Past Medical History - SOCIAL HISTORY Smoking Status: Never smoker Alcohol Use: None Drug Use: None - RESPIRATORY Hx Respiratory Disorders: Yes Hx Dyspnea: Yes (restrictive lung disease) Hx Sleep Apnea: Yes Hx of CPAP: Yes Comment:: right lung is smaller than left - CARDIOVASCULAR Hx Cardio Disorders: Yes Hx Hypertension: Yes - NEURO Hx Neuro Disorders: No - GI Hx GI Disorders: Yes Hx GI Bleed: Yes Hx Rectal Bleeding: Yes - Hx Genitourinary Disorders: No Comment:: stress/urge incontinenece - ENDOCRINE Hx Endocrine Disorders: Yes Comment:: borderline diabetic - MUSCULOSKELETAL Hx Musculoskeletal Disorders: Yes Hx Arthritis: Yes (osteoarthritis and psoriatic) - PSYCH Hx Psych Problems: Yes Hx Anxiety: Yes Hx Depression: Yes - HEMATOLOGY/ONCOLOGY Hx Hematology/Oncology Disorders: No Family Medical History Any Significant Family History?: Yes Hx Diabetes: Mother, Brother/Sister Physical Exam - General General Appearance: Alert, Oriented x3, Cooperative, No acute distress Limitations: No limitations - Head Head exam: Atraumatic, Normal inspection - Eye Eye exam: Normal appearance, PERRL. negative: Conjunctival injection, Scleral icterus - ENT ENT exam: Normal exam, Mucous membranes moist, Normal orophraynx Ear exam: Normal external inspection Nasal Exam: Normal inspection Mouth exam: Normal external inspection Teeth exam: Normal inspection Throat exam: Normal inspection - Neck Neck exam: Normal inspection, Full ROM. negative: Lymphadenopathy - Respiratory Respiratory exam: Decreased breath sounds, Prolonged expiratory, Rhonchi, Wheezes. negative: Normal lung sounds bilaterally - Cardiovascular Cardiovascular Exam: Regular rate, Normal rhythm, Normal heart sounds - GI/Abdominal GI/Abdominal exam: Soft, Other (obese). negative: Tenderness - Rectal Rectal exam: Deferred - exam: Deferred - Extremities Extremities exam: Normal inspection. negative: Calf tenderness, Full ROM, Pedal edema, Tenderness - Back Back exam: Denies: CVA tenderness (R), CVA tenderness (L) - Neurological Neurological exam: Alert, Oriented X3 - Psychiatric Psychiatric exam: Normal affect, Normal mood. negative: Agitated, Anxious - Skin Skin exam: Dry, Intact, Normal color, Warm Course Vital Signs 03/17/19 10:37 Temperature 97.5 F L Pulse Rate 89 Respiratory 22 Rate Blood Pressure 180/94 Pulse Ox 95 - Reevaluation(s) Reevaluation #1: 03/17/19 10:53 EKG #1: 10:42 Rate: 85 Rhythm: sinus [place]: left Intervals: [place] [address] ST segments: no acute changes Prior: 12/10/16 no changes 03/17/19 11:13 The labs were reviewed No acute changes on the CBC, CMP, Troponin or BNP The Indluenza are negative The patient was rechecked after the treatment. She has continued rhonchi and expiratory wheeze 90-93% on RA. 03/17/19 12:04 The CXR was reviewed. Chronic elevation of the right hemidiaphragm, infiltrate vs atelectasis Medical Decision Making - Lab Data Result diagrams: 03/17/19 10:20 03/17/19 10:20 Lab Results 03/17/19 Range/Units 10:20 WBC 9.8 (4.2-12.2) K/uL RBC 3.82 (3.80-5.40) M/uL Hgb 12.3 (11.6-16.0) gm/dl Hct 37.5 (35.0-47.0) % MCV 98.2 H (81-97) fl MCH 32.2 (27-33) pg MCHC 32.8 (32-36) g/dl RDW 14.4 (11.5-14.5) % Plt Count 301 (130-400) K/uL MPV 11.1 H (7.4-10.4) fl Gran % 67.8 (47-80) % Lymphocytes % 21.3 (16-45) % Monocytes % 9.1 H (0-9) % Eosinophils % 0.8 (0-6) % Basophils % 1.0 (0-6) % Absolute Neutrophils 6.61 Disposition Disposition: Admit Clinical Impression: COPD exacerbation, Dyspnea, Bronchitis Disposition: Still a Patient at [facility] Decision to Admit: Admit from ER Decision to Admit Date: 03/17/19 Decision to Admit Time: 12:10 Condition: (2) Stable Forms: Patient Portal Access Time of Disposition: 12:10 Quality - Quality Measures Quality Measures: N/A - Blood Pressure Screening Does Patient Have Any of the Following: Active Dx of HTN Blood Pressure Classification: Hypertensive Reading Systolic Measurement: 180 Diastolic Measurement: 94 Screening for High Blood Pressure: Patient Exclusion, Hx of HTN [[id number]]
[2019-03-17 11:02] LABS: BLOOD UREA NITROGEN 18 mg/dL (8-23); CREATININE 0.8 mg/dL (0.5-0.9); EST GLOMERULAR FILTRATION RATE > 60 mL/min
[2019-03-17 11:03] LABS: INFLUENZA A NEGATIVE (NEGATIVE); INFLUENZA B NEGATIVE (NEGATIVE)
[2019-03-17 11:03] LABS: TOTAL PROTEIN 7.7 g/dL (6.6-8.7)
[2019-03-17 11:05] LABS: GLUCOSE,RANDOM 156 mg/dL (74-109)
[2019-03-17 11:08] LABS: ALB/GLOB RATIO 1.3 (1.1-1.8); ALBUMIN 4.3 g/dL (4.0-5.0); ALKALINE PHOSPHATASE 113 U/L (35-104); ALT/SGPT 23 U/L (<33); AST/SGOT 25 U/L (10.0-35.0)
[2019-03-17] MEDS ORDERED: CEFTRIAXONE 1GM/50ML BAG 1 GM/50 ML BAG IVPB ONE (12:03)
[2019-03-17] MEDS ORDERED: METHOTREXATE SODIUM IM SCH (12:40)
[2019-03-17] MEDS ORDERED: ALBUTEROL SULFATE (0.083%) 2.5 MG/3 ML NEB INH PRN (12:40)
[2019-03-17] MEDS ORDERED: NYSTATIN 15 GM POWDER TP SCH (12:40)
[2019-03-17] MEDS ORDERED: PNEUM 23-VAL ADULT IM ONE (13:05)
--- NOTE | 2019-03-17 13:10 | RADIOLOGY REPORT ---
EXAM: CHEST, TWO VIEWS HISTORY: PRODUCTIVE COUGH. DIFFICULTY IN BREATHING AND WEAKNESS FOR ONE WEEK. TECHNIQUE: Upright PA and lateral views of the chest were obtained. Comparison: Two view chest radiographic examination dated 07/24/18. FINDINGS: There is again noted elevation of the right hemidiaphragm. Patchy opacities within the right lung base appear slightly more pronounced in the interval consistent with atelectasis or less likely infiltrate. The lungs and pleural spaces are otherwise clear. The heart is not enlarged. No pulmonary venous hypertension is seen. The thoracic aorta is tortuous and atherosclerotic. Mild degenerative changes are scattered throughout the visualized spine. IMPRESSION: 1. MODERATE ELEVATION OF THE RIGHT HEMIDIAPHRAGM REDEMONSTRATED. 2. PATCHY PREDOMINANTLY LINEAR OPACITIES IN THE RIGHT LUNG BASE APPEAR SLIGHTLY MORE PRONOUNCED IN THE INTERVAL CONSISTENT WITH ATELECTASIS OR LESS LIKELY INFILTRATE. OTHERWISE, NO CHANGE SINCE 07/24/18. JOB NUMBER: [id number] MTDD
[2019-03-17] MEDS: ATORVASTATIN CALCIUM 40 MG PO SCH (13:51)
[2019-03-17] MEDS: HYDROCHLOROTHIAZIDE PO SCH (13:52)
[2019-03-17] MEDS: METFORMIN HCL 500 MG PO SCH (13:52)
[2019-03-17] MEDS: LISINOPRIL PO SCH (13:52)
[2019-03-17] MEDS: PATIENT OWN MED: CHLORTHALIDONE 25 MG PO SCH (13:53)
[2019-03-17] MEDS: PATIENT OWN MED: LEVOTHYROXINE 50 MCG PO SCH (13:54)
[2019-03-17] MEDS: AMLODIPINE BESYLATE 5MG TAB PO SCH (13:55)
[2019-03-17] MEDS: AZITHROMYCIN 500 MG TABLET PO SCH (13:57)
[2019-03-17] MEDS: IPRATROPIUM/ALBUTEROL (0.5MG/3MG) NEB INH SCH ×3 (14:22→21:35)
[2019-03-17] MEDS: ACETAMINOPHEN 325 MG TAB PO PRN ×2 (17:39→23:03)
[2019-03-17] MEDS: CEFTRIAXONE 1GM/50ML BAG 1 GM/50 ML BAG IVPB SCH (21:55)
[2019-03-18] MEDS: IPRATROPIUM/ALBUTEROL (0.5MG/3MG) NEB INH SCH ×5 (05:56→21:35)
[2019-03-18] MEDS: ACETAMINOPHEN 325 MG TAB PO PRN (06:12)
[2019-03-18 06:43] LABS: ABSOLUTE NEUTROPHIL COUNT 9.56; HEMATOCRIT 35.7 % (35.0-47.0); HEMOGLOBIN 11.4 gm/dl (11.6-16.0); MEAN CELL VOLUME 96.5 fl (81-97); MEAN CORPUSCULAR HEMOGLOBIN 30.8 pg (27-33); MEAN CORPUSCULAR HGB CONC 31.9 g/dl (32-36); MEAN PLATELET VOLUME 10.9 fl (7.4-10.4); PLATELET COUNT 332 K/uL (130-400); RED CELL DISTRIBUTION WIDTH 14.2 % (11.5-14.5); WHITE BLOOD COUNT W/O DIFF 11.9 K/uL (4.2-12.2)
[2019-03-18] MEDS: PATIENT OWN MED: LEVOTHYROXINE 50 MCG PO SCH (07:00)
[2019-03-18 07:01] LABS: BLOOD UREA NITROGEN 23 mg/dL (8-23); CREATININE 0.9 mg/dL (0.5-0.9); EST GLOMERULAR FILTRATION RATE > 60 mL/min; GLUCOSE,RANDOM 173 mg/dL (74-109)
[2019-03-18 07:06] LABS: PLATELET ESTIMATE NORMAL (NORMAL)
--- NOTE | 2019-03-18 09:21 | History & Physical ---
History of Present Illness - Date of Service Date of Service for History & Physical: 03/18/19 - History of Present Illness Admitting Diagnosis: Dyspnea, cough, weakness History of Present Illness: Alethea De Oliveira is a 73 y.o. F who presented to the [facility] ED on 03/17/19 with c/o worsening cough and SOB x 5-6 days. Was seen in [facility] on 03/12/19 and was diagnoses with rhinosinusitis and started on Augmentin x 7 days, which she has been taking. Sees Dr. Alejandro for Pulmonology, but hasn't been seen in approximately 1 year. Does also follow with Rheumatology for psoriasis for which she takes Methotrexate. ED Course Vitals: T 97.5, HR 89, BP 180/94, RR 22, SPO2 95% on RA CXR: chronic R hemidiaphragm elevation, patchy linear opacities in RLL= Atelectasis vs. less likely infiltrate EKG: Sinus rhythm, no acute ST changes Labs: No acute changes on CBC, CMP, Troponin or BNP Influenza negative 03/18/19 1000 Vitals: HR93, RR 17, BP 131/56, SPO2 94% on RA, T 97.9 Reports that she is not feeling any improvement in SOB. Does have Alpha-1 An titrypsin deficiency (Per Patient Safety Sitter) and SAMI but doesn't feel that she is at her baseline breathing. C/o feeling extreme weakness. Lives home alone and does not feel safe returning at this point. Has been using a walker since being admitted but does not normally use one. Reports feeling some improvement after receiving breathing treatments, stating that it helps bring up alot of phlegm. Does have a rescue inhaler at home and normally uses it about once a week. Does not do any other breathing treatments or inhalers at home. Has a frontal sinus headache. Denies fever, chills, chest pain or heart palpitations. States that bowels are moving normally. Travel Screening - Travel/Exposure Within Last 30 Days Have you traveled within the last 30 days?: No - Travel/Exposure Within Last Year Have you traveled outside the [place] in the last year?: No - Additonal Travel Details Have you been exposed to anyone with a communicable illness?: No - Travel Symptoms Symptom Screening: None Review of Systems Constitutional: Reports: Malaise, Weakness. Denies: Chills, Fever Eyes: Denies: Eye discharge, Eye pain, Photophobia, Vision change ENT: Reports: Congestion Respiratory: Reports: Cough, Dyspnea Cardiovascular: Reports: Dyspnea on exertion. Denies: Chest pain, Palpitations, Syncope Endocrine: Denies: Polydipsia, Polyuria Gastrointestinal: Denies: Abdominal pain, Constipation, Diarrhea, Nausea, Vomiting Genitourinary: Denies: Dysuria Musculoskeletal: Denies: Arthralgia, Back pain, Joint swelling, Myalgia Neurological: Denies: Confusion, Headache, Weakness Psychiatric: Denies: Anxiety Hematological/Lymphatic: Denies: Blood Clots, Easy bleeding, Easy bruising, Swollen glands Past Medical History - SOCIAL HISTORY Smoking Status: Never smoker Alcohol Use: None Drug Use: None - RESPIRATORY Hx Respiratory Disorders: Yes Hx Dyspnea: Yes (restrictive lung disease) Hx Sleep Apnea: Yes Hx of CPAP: Yes Comment:: right lung is smaller than left - CARDIOVASCULAR Hx Cardio Disorders: Yes Hx Hypertension: Yes - NEURO Hx Neuro Disorders: No - GI Hx GI Disorders: Yes Hx GI Bleed: Yes Hx Rectal Bleeding: Yes - Hx Genitourinary Disorders: No Comment:: stress/urge incontinenece - ENDOCRINE Hx Endocrine Disorders: Yes Comment:: borderline diabetic - MUSCULOSKELETAL Hx Musculoskeletal Disorders: Yes Hx Arthritis: Yes (osteoarthritis and psoriatic) - PSYCH Hx Psych Problems: Yes Hx Anxiety: Yes Hx Depression: Yes - HEMATOLOGY/ONCOLOGY Hx Hematology/Oncology Disorders: No Family Medical History Any Significant Family History?: Yes Hx Diabetes: Mother, Brother/Sister H&P Meds/Allergies - Allergies Allergies: Allergies Allergy/AdvReac Type Severity Reaction Status Date / Time No Known Drug Allergies Allergy Verified 03/17/19 10:38 - Home Medications Previous Rx's Medication Instructions Recorded Aspirin [Aspirin EC] 81 mg PO DAILY #30 tablet. 01/19/15 - Active Medications Active Medications: Current Medications Acetaminophen (Tylenol 325mg) 650 mg PO Q6H PRN PRN Reason: PAIN - MILD(1-4)/FEVER Last Admin: 03/18/19 06:12 Dose: 650 mg Documented by: Albuterol Sulfate (Albuterol Sulfate) 2.5 mg INH RESP.Q4H PRN PRN Reason: DIFFICULTY IN BREATHING Albuterol/Ipratropium (Duoneb) 3 ml INH RESP.Q4H.WA JELENA Last Admin: 03/18/19 05:56 Dose: 3 ml Documented by: Amlodipine Besylate (Norvasc) 10 mg PO DAILY [facility] Last Admin: 03/17/19 13:55 Dose: 10 mg Documented by: Aspirin (Ecotrin (Ec)) 81 mg PO DAILY [facility] Azithromycin (Zithromax) 500 mg PO DAILY [facility] Last Admin: 03/17/19 13:57 Dose: 500 mg Documented by: CEFTRIAXONE 1GM/50ML BAG (Ceftriaxone 1 Gm-D5w Bag) 1 gm in 50 mls @ 100 mls/hr IVPB Q12HR [facility] Last Infusion: 03/17/19 22:30 Dose: Infused Documented by: Methylprednisolone Sodium Succinate (Solu-Medrol) 60 mg IVP DAILY [facility] (Atorvastatin Calcium [ Atorvastatin Calcium ] 40 Mg) 40 mg PO DAILY [facility] Last Admin: 03/17/19 13:51 Dose: 40 mg Documented by: (Lisinopril/Hydrochlorothiazide [Lisinopril-Hctz 20- 25 Mg Tab] 1 Each 1 each PO DAILY [facility] Last Admin: 03/17/19 13:52 Dose: 1 each Documented by: (Metformin Hcl [ Metformin Er] 500 Mg ) 500 mg PO DAILY [facility] Last Admin: 03/17/19 13:52 Dose: 500 mg Documented by: Patient Own Med: (Chlorthalidone 25 Mg) 1 each PO DAILY [facility] Last Admin: 03/17/19 13:53 Dose: 1 each Documented by: Patient Own Med: (Levothyroxine 50 Mcg) 1 each PO DAILYTHY [facility] Last Admin: 03/18/19 07:00 Dose: 1 each Documented by: Physical Exam - Vital Signs Vital Signs: Vital Signs - Last 24 Hrs Temp Pulse Pulse Pulse Resp BP BP 03/18/19 08:21 93 H 17 03/18/19 08:00 97.9 F 90 17 03/18/19 05:56 88 18 03/18/19 05:10 88 16 108/53 03/17/19 21:36 100 H 18 03/17/19 20:40 98.0 F 100 H 20 150/66 03/17/19 18:17 100 H 18 03/17/19 14:25 90 18 03/17/19 13:29 85 22 03/17/19 12:40 97.7 F 88 16 192/83 03/17/19 11:53 85 22 05/13/19 10:57 86 16 03/17/19 10:37 97.5 F L 89 22 180/94 BP Pulse Ox 03/18/19 08:21 03/18/19 08:00 131/56 94 L 03/18/19 05:56 95 03/18/19 05:10 97 03/17/19 21:36 95 03/17/19 20:40 94 L 03/17/19 18:17 95 03/17/19 14:25 92 L 03/17/19 13:29 03/17/19 12:40 90 L 03/17/19 11:53 153/83 94 L 03/17/19 10:57 93 L 03/17/19 10:37 95 - General General Appearance: Alert, Oriented x3, Cooperative, No acute distress Limitations: No limitations - Head Head exam: Atraumatic, Normal inspection - Eye Eye exam: Normal appearance, PERRL. negative: Conjunctival injection, Scleral icterus - ENT ENT exam: Normal exam, Mucous membranes moist, Normal orophraynx Ear exam: Normal external inspection Nasal Exam: Normal inspection Mouth exam: Normal external inspection Teeth exam: Normal inspection Throat exam: Normal inspection - Neck Neck exam: Normal inspection, Full ROM. negative: Lymphadenopathy - Respiratory Respiratory exam: Decreased breath sounds (RLL), Prolonged expiratory. negative: Normal lung sounds bilaterally - Cardiovascular Cardiovascular Exam: Regular rate, Normal rhythm, Normal heart sounds - GI/Abdominal GI/Abdominal exam: Soft, Other (obese). negative: Tenderness - Rectal Rectal exam: Deferred - exam: Deferred - Extremities Extremities exam: Normal inspection. negative: Calf tenderness, Full ROM, Pedal edema, Tenderness - Back Back exam: Denies: CVA tenderness (R), CVA tenderness (L) - Neurological Neurological exam: Alert, Oriented X3 - Psychiatric Psychiatric exam: Normal affect, Normal mood. negative: Agitated, Anxious - Skin Skin exam: Dry, Intact, Normal color, Warm Results - Labs Result Diagrams: 03/18/19 06:22 03/18/19 06:22 Labs Last 24 Hours: Laboratory Results - last 24 hr 03/17/19 03/17/19 03/17/19 10:20 10:20 10:30 WBC 9.8 RBC 3.82 Hgb 12.3 Hct 37.5 MCV 98.2 H MCH 32.2 MCHC 32.8 RDW 14.4 Plt Count 301 MPV 11.1 H Gran % 67.8 Neutrophils % Lymphocytes % 21.3 Monocytes % 9.1 H Eosinophils % 0.8 Basophils % 1.0 Absolute Neutrophils 6.61 Lymphocytes Monocytes Platelet Estimate RBC Morphology Sodium 141 Potassium 4.3 Chloride 102 Carbon Dioxide 26.0 Anion Gap 13.0 BUN 18 Creatinine 0.8 Estimated GFR > 60 Random Glucose 156 H Calcium 9.8 Total Bilirubin 0.50 AST 25 ALT 23 Alkaline Phosphatase 113 H Troponin T < 0.010 NT-Pro-B Natriuret Pep 74.40 Total Protein 7.7 Albumin 4.3 Globulin 3.4 Albumin/Globulin Ratio 1.3 Influenza Type A Ag Negative Influenza Type B Ag Negative 03/18/19 03/18/19 06:22 06:22 WBC 11.9 RBC 3.70 L Hgb 11.4 L Hct 35.7 MCV 96.5 MCH 30.8 MCHC 31.9 L RDW 14.2 Plt Count 332 MPV 10.9 H Gran % Neutrophils % 84.0 H Lymphocytes % Monocytes % Eosinophils % Not Reportable Basophils % Not Reportable Absolute Neutrophils 9.56 Lymphocytes 14.0 L Monocytes 2.0 Platelet Estimate Normal RBC Morphology Normal Sodium 142 Potassium 4.3 Chloride 103 Carbon Dioxide 25.0 Anion Gap 14.0 BUN 23 Creatinine 0.9 Estimated GFR > 60 Random Glucose 173 H Calcium 9.4 Total Bilirubin AST ALT Alkaline Phosphatase Troponin T NT-Pro-B Natriuret Pep Total Protein Albumin Globulin Albumin/Globulin Ratio Influenza Type A Ag Influenza Type B Ag - Imaging and Cardiology Chest x-ray Status: Report reviewed VTE H&P Assessment - Risk for VTE Risk for VTE: Yes Risk Level: Moderate Risk Assessment Date: 03/18/19 Risk Assessment Time: 10:00 VTE Orders Placed or Will Be Placed: Yes Plan - Inpatient Certification Inpatient Certification: Admit to inpatient care: Based on my medical assessment, after consideration of patient's risk factors (age, co-morbidities and patient presenting symptoms and acuity), I expect that this patient will remain in the hospital greater than or equal to two midnights and that the services needed warrant inpatient care because: Patient Risk Factors: [] Estimated length of stay: [] The patient may reasonably be expected to be discharged or transferred to a hospital within 96 hours after admission to [facility]. Services needed: [] Post hospital care (if known): [] I certify that my determination is in accordance with my understanding of Medicare requirements for reasonable and necessary inpatient services. - Detailed Diagnosis and Plan (1) Dyspnea Current Visit: Yes Status: Acute Base Code: R06.00 - DYSPNEA, UNSPECIFIED Comment: 03/18/19 -CXR: moderate elevation of the R hemidiaphragm (chronic), atelectasis vs infiltrate (less likely) -Continue CPAP with home settings -O2 sats 93-95 on RA -WBC 11.9, BNP 74, Trops neg., influenza neg. 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 therapy (Methotrexate) -Continue Azithromycin 500mg PO q. day -Continue Rocephin 1gm IV q. 12 hours -Continue Duonebs q. 4 hours while awake -Continue Solu-Medrol 60mg IVP daily -Consider d/c on 03/19/19 if breathing back to baseline. (2) Generalized weakness Current Visit: Yes Status: Acute Base Code: R53.1 - WEAKNESS Comment: 03/18/19 -URI Symptoms started approximately 2 weeks ago -Using a walker since arrival to hospital, doesn't usually use at home -CXR: Atelectasis vs. Infiltrates (less likely) -PT/OT ordered to eval and treat (3) DVT prophylaxis Current Visit: Yes Status: Acute Base Code: [id number] - Comment: 03/18/19 -Moderate risk d/t age, restricted mobility, immunosuppression -Nursing to encourage frequent ambulation -Lovenox 40mg subq. daily (4) Full code status Current Visit: No Status: Acute Base Code: Z78.9 - OTHER SPECIFIED HEALTH STATUS Comment: 03/18/19 -Full code this admission
[2019-03-18] MEDS ORDERED: CHOLECALCIFEROL 4000 UNIT PO SCH (10:00)
[2019-03-18] MEDS: HYDROCHLOROTHIAZIDE PO SCH (10:08)
[2019-03-18] MEDS: ATORVASTATIN CALCIUM 40 MG PO SCH (10:08)
[2019-03-18] MEDS: LISINOPRIL PO SCH (10:08)
[2019-03-18] MEDS: ASPIRIN 81 MG TABEC PO SCH (10:09)
[2019-03-18] MEDS: AZITHROMYCIN 500 MG TABLET PO SCH (10:09)
[2019-03-18] MEDS: AMLODIPINE BESYLATE 5MG TAB PO SCH (10:09)
[2019-03-18] MEDS: METFORMIN HCL 500 MG PO SCH (10:09)
[2019-03-18] MEDS: PATIENT OWN MED: CHLORTHALIDONE 25 MG PO SCH (10:09)
[2019-03-18] MEDS: CEFTRIAXONE 1GM/50ML BAG 1 GM/50 ML BAG IVPB SCH ×2 (10:10→22:00)
[2019-03-18] MEDS: METHYLPREDNISOLONE PF 125MG/VIAL IVP SCH (10:10)
[2019-03-18] MEDS: ENOXAPARIN 40 MG/0.4 ML SYR SQ SCH (12:13)
--- NOTE | 2019-03-18 12:40 | Rehab Evaluation ---
Patient Information - Patient Information Diagnosis: dyspnea, weakness Ordered Treatment: PT Evaluate and Treat Status: Initial Evaluation Past Medical/Surgical Hx: PAST MEDICAL/SURGICAL HISTORY Past Surgical History right Knee replacement PMH - Respiratory Hx Respiratory Disorders Yes Hx Chronic Obstructive No Pulmonary Disease (COPD) Hx Dyspnea Yes: restrictive lung disease Hx Sleep Apnea Yes Hx of CPAP Yes Comment: right lung is smaller than left PMH - Cardiovascular Hx Cardiovascular Disorders Yes Hx Hypertension Yes PMH - Neuro Hx Neurological Disorders No PMH - GI Hx Gastrointestinal Disorders Yes Hx Gastrointestinal Bleed Yes Hx Rectal Bleeding Yes Comment: first time rectal bleed PMH - Hx Genitourinary Disorders No Hx Age of Menopause 54 Comment: stress/urge incontinenece PMH - Endocrine Hx Endocrine Disorders Yes Hx Diabetes Yes Hx Thyroid Disease Yes Comment: borderline diabetic PMH - Musculoskeletal Hx Musculoskeletal Disorders Yes Hx Arthritis Yes: osteoarthritis and psoriatic PMH - Psych Hx Psychiatric Problems Yes Hx Anxiety Yes Hx Depression Yes PMH - Hematology/Oncology Hx Hematology/Oncology No Disorders Premorbid Status: Detail (Prior to admission the patient was ambulatory without device and completed all artist manager.) Social History: Detail (The patient lives alone in a 1 story house with 3 steps at the enterance and no handrails, however the patient has a wood box that she pushes on to steady herself. The bathroom is equipped with an elevated toilet and tub/shower combination. The patient has a walker and CPAP at home.) Precautions: Fonda, Fall - Time With Patient Treatment Procedures: Detail (Initial Evaluation) Subjective Information - Subjective Information Per Patient (The patient had no complaints of pain but did complain of lightheadedness with sitting and standing.) Objective Data - Mental Status Patient Orientation: Oriented x3 - Visual Perception Appears within normal limits for therapeutic activities - ROM Within normal limits (LE AROM is WNL) - Strength/Tone Not within normal limits (The patient's LE strength was generally 4+ to 5/5 except for hip flexors which were 3/5 and hip adductors which were 4-/5.) - Bed Mobility Independent (With supine to sit) - Transfers Independent (With sit to and from stand transfer.) - Balance Balance Sitting: Good Balance Standing: Fair (The patient required support of walker with standing and walking. Balance was not formally tested.) - Gait Detail (The patient ambulated with front wheeled walker a distance of 50 feet x 1 with supervision of safety and increased shortness of breath.) Therapy Assessment - Therapy Assessment Detail (The patient exhibited shortness of breath with ambulation and presented with hip muscular weakness. Since the patient was previously ambulatory without device feel the patient would benefit from short term PT as an inpatient, then at home to return to previous functional level.) Problem List - Problem List Physical Therapy Problem List: Detail (1) Shortness of breath with ambulation 2) Impaired ambulation ie: patient using assistive device 3) Decreased ability to complete prolonged physical activity) Goals - Goals Physical Therapy Goals: 1)The patient will ambulate without device community distances. 2) Evaluate the patient's balance using an objective balance test. 3) The patient will ambulate on stairs indpendently Prognosis - Prognosis Good Plan - Plan Physical Therapy Plan: PT 1-2 times a day for gait training on levels and stairs and balance exercises.
--- NOTE | 2019-03-18 12:50 | Rehab Evaluation ---
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 PMH - Cardiovascular Hx Cardiovascular Disorders Yes Hx Hypertension Yes PMH - Neuro Hx Neurological Disorders No PMH - GI Hx Gastrointestinal Disorders Yes Hx Gastrointestinal Bleed Yes Hx Rectal Bleeding Yes Comment: first time rectal bleed PMH - Hx Genitourinary Disorders No Hx Age of Menopause 54 Comment: stress/urge incontinenece PMH - Endocrine Hx Endocrine Disorders Yes Hx Diabetes Yes Hx Thyroid Disease Yes Comment: borderline diabetic PMH - Musculoskeletal Hx Musculoskeletal Disorders Yes Hx Arthritis Yes: osteoarthritis and psoriatic PMH - Psych Hx Psychiatric Problems Yes Hx Anxiety Yes Hx Depression Yes PMH - Hematology/Oncology Hx Hematology/Oncology No Disorders Premorbid Status: Detail (Pt lives alone in a 1 story house with 3 steps and no handrailing at the entrance. She has a tub/shower combination, no seat or grab bars. She typically stands to shower but is planning to get a tub seat. She has an elevated toilet seat, no grab bars. She is Ind with all self cares and IADLs and she typically ambulates without an assistive device but she has a walker available.) Precautions: Ferris, Fall - Time With Patient Total Time Spent With Patient (Min): 30 Treatment Procedures: Detail (OT eval low complexity) Subjective Information - Subjective Information Per Patient Objective Data - Pain Pain Present: No - Mental Status Patient Orientation: Oriented x3 - Visual Perception Appears within normal limits for therapeutic activities - ROM Within normal limits (Reinaldo UE AROM WNL) - Strength/Tone Within normal limits (Reinaldo UE strength WNL) - Coordination Appears within normal limits for therapeutic activities - Bed Mobility Independent (Ind with supine to sit) - Transfers Independent (Ind with sit to stand from EOB) - Balance Balance Sitting: Good Balance Standing: Fair - Sensation Intact - Gait Detail (Pt ambulated short distance in hallway with 2 wheeled walker and SBA. She was short of breath but reports this is typical for her. She c/o lightheadedness while sitting at EOB.) - ADL's/IADL's Detail (Pt reports she has been toileting with supervision from nursing and she completed a sponge bath earlier today Indly. She was able to doff slipper socks and don pants and slip on shoes Indly. Pt feels she will not have any difficulty with ADLs after discharge but she is agreeable to home OT to address IADLs and energy conservation teaching.) Therapy Assessment - Therapy Assessment Detail (Pt is Ind with partial self care tasks. She would benefit from home OT to evaluate for energy conservation techniques with ADLs/IADLs in the home and to address home modifications for safety.) Problem List - Problem List Occupational Therapy Problem List: Detail (No current IP OT problems identified.) Goals - Goals Occupational Therapy Goals: No current IP OT goals identified. Prognosis - Prognosis Good Plan - Plan Occupational Therapy Plan: Recommend home OT evaluate/treat to address energy conservation/home modifications to maximize safety and Ind with ADLs/IADLs.
[2019-03-19] MEDS: PATIENT OWN MED: LEVOTHYROXINE 50 MCG PO SCH (06:42)
[2019-03-19] MEDS: IPRATROPIUM/ALBUTEROL (0.5MG/3MG) NEB INH SCH ×2 (06:52→10:06)
[2019-03-19] MEDS: ASPIRIN 81 MG TABEC PO SCH (10:43)
[2019-03-19] MEDS: HYDROCHLOROTHIAZIDE PO SCH (10:43)
[2019-03-19] MEDS: METFORMIN HCL 500 MG PO SCH (10:43)
[2019-03-19] MEDS: PATIENT OWN MED: CHLORTHALIDONE 25 MG PO SCH (10:43)
[2019-03-19] MEDS: ATORVASTATIN CALCIUM 40 MG PO SCH (10:43)
[2019-03-19] MEDS: LISINOPRIL PO SCH (10:43)
[2019-03-19] MEDS: AZITHROMYCIN 500 MG TABLET PO SCH (10:43)
[2019-03-19] MEDS: METHYLPREDNISOLONE PF 125MG/VIAL IVP SCH (10:44)
[2019-03-19] MEDS: AMLODIPINE BESYLATE 5MG TAB PO SCH (10:44)
[2019-03-19] MEDS: CEFTRIAXONE 1GM/50ML BAG 1 GM/50 ML BAG IVPB SCH (10:45)
[2019-03-19] MEDS: ENOXAPARIN 40 MG/0.4 ML SYR SQ SCH (10:45)
--- NOTE | 2019-03-19 10:51 | Discharge Summary ---
Providers Discharge Summary Date: 03/19/19 Date of admission: 03/17/19 12:39 Attending physician: NEREIDA PLATT Primary care physician: NEREIDA PLATT Physical Exam - Vital Signs Vital Signs: Vital Signs - Last 24 Hrs Temp Pulse Pulse Pulse Resp BP Pulse Ox 03/19/19 10:06 80 18 93 L 03/19/19 10:00 98.6 F 94 H 18 143/71 91 L 03/19/19 08:48 84 18 03/19/19 02:15 98.1 F 95 H 18 127/51 99 03/18/19 21:35 84 18 95 03/18/19 18:01 101 H 18 94 L 03/18/19 16:00 97.4 F L 99 H 18 142/76 95 03/18/19 13:48 90 18 94 L - General General Appearance: Alert, Oriented x3, Cooperative, No acute distress Limitations: No limitations - Head Head exam: Atraumatic, Normal inspection - Eye Eye exam: Normal appearance, PERRL. negative: Conjunctival injection, Scleral icterus - ENT ENT exam: Normal exam, Mucous membranes moist, Normal orophraynx Ear exam: Normal external inspection Nasal Exam: Normal inspection Mouth exam: Normal external inspection Teeth exam: Normal inspection Throat exam: Normal inspection - Neck Neck exam: Normal inspection, Full ROM. negative: Lymphadenopathy - Respiratory Respiratory exam: Decreased breath sounds (RLL), Prolonged expiratory. negative: Normal lung sounds bilaterally - Cardiovascular Cardiovascular Exam: Regular rate, Normal rhythm, Normal heart sounds - GI/Abdominal GI/Abdominal exam: Soft, Other (obese). negative: Tenderness - Rectal Rectal exam: Deferred - exam: Deferred - Extremities Extremities exam: Normal inspection. negative: Calf tenderness, Full ROM, Pedal edema, Tenderness - Back Back exam: Denies: CVA tenderness (R), CVA tenderness (L) - Neurological Neurological exam: Alert, Oriented X3 - Psychiatric Psychiatric exam: Normal affect, Normal mood. negative: Agitated, Anxious - Skin Skin exam: Dry, Intact, Normal color, Warm Hospitalization - Hospitalization Admission Diagnosis: Dyspnea, cough, weakness - Problem List/Discharge Diagnosis (1) Dyspnea Status: Acute Base Code: R06.00 - DYSPNEA, UNSPECIFIED Comment: 03/19/19 -Reports that breathing is back to baseline -CXR: moderate elevation of the R hemidiaphragm (chronic), atelectasis vs infiltrate (less likely) -Continue CPAP with home settings -O2 sats 93-95 on RA -WBC 11.9, BNP 74, Trops neg., influenza neg. 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 therapy (Methotrexate) -Has had 3 days worth of Azithromycin 500mg PO daily, no need to send script home -Does not qualify for Home Nebulizer machine and treatments -Sending home with Medrol dose pack (2) Generalized weakness Status: Acute Base Code: R53.1 - WEAKNESS Comment: 03/19/19 -Feeling less weak today -Has walker at home if needed -Worked with PT/OT on 03/18/19 (3) DVT prophylaxis Status: Acute Base Code: [id number] - Comment: 03/19/19 -Moderate risk d/t age, restricted mobility, immunosuppression -Nursing to encourage frequent ambulation (4) Full code status Status: Acute Base Code: Z78.9 - OTHER SPECIFIED HEALTH STATUS Comment: 03/19/19 -Full code this admission - Hospitalization Course Disposition: Home, Self-Care Hospital Course: Alethea De Oliveira is a 73 y.o. F who presented to the [facility] ED on 03/17/19 with c/o worsening cough and SOB x 5-6 days. Was seen in [facility] on 03/12/19 and was diagnoses with rhinosinusitis and started on Augmentin x 7 days, which she has been taking. Sees Dr. Alejandro for Pulmonology, but hasn't been seen in approximately 1 year. Does also follow with Rheumatology for psoriasis for which she takes Methotrexate. ED Course Vitals: T 97.5, HR 89, BP 180/94, RR 22, SPO2 95% on RA CXR: chronic R hemidiaphragm elevation, patchy linear opacities in RLL= Atelectasis vs. less likely infiltrate EKG: Sinus rhythm, no acute ST changes Labs: No acute changes on CBC, CMP, Troponin or BNP Influenza negative 03/18/19 1000 Vitals: HR93, RR 17, BP 131/56, SPO2 94% on RA, T 97.9 Reports that she is not feeling any improvement in SOB. Does have Alpha-1 Antitrypsin deficiency (Per Medicine Assistant) and SAMI but doesn't feel that she is at her baseline breathing. C/o feeling extreme weakness. Lives home alone and does not feel safe returning at this point. Has been using a walker since being admitted but does not normally use one. Reports feeling some improvement after receiving breathing treatments, stating that it helps bring up alot of phlegm. Does have a rescue inhaler at home and normally uses it about once a week. Does not do any other breathing treatments or inhalers at home. Has a frontal sinus headache. Denies fever, chills, chest pain or heart palpitations. States that bowels are moving normally. 03/19/19 1030 Vitals: HR 82, RR 15, BP 136/75, SPO2 96% on RA, T 97.5 Reports that she is feeling much better than the previous day and is ready to go home. Feels less weak and breathing has improved. Procedures: Imaging and X-Rays 03/17/19 10:35 CHEST 2 VIEWS [RAD] Stat Cardiology Procedures 03/17/19 10:35 Hostess NOW EKG NOW 03/17/19 12:40 Hostess .Continuous Abnormal Labs: Abnormal Lab Results 03/17/19 03/17/19 03/18/19 Range/Units 10:20 10:20 06:22 RBC 3.70 L (3.80-5.40) M/uL Hgb 11.4 L (11.6-16.0) gm/dl MCV 98.2 H (81-97) fl MCHC 31.9 L (32-36) g/dl MPV 11.1 H 10.9 H (7.4-10.4) fl Neutrophils % 84.0 H (47-80) % Monocytes % 9.1 H (0-9) % Lymphocytes 14.0 L (16-45) % Random Glucose 156 H (74-109) mg/dL Alkaline Phosphatase 113 H (35-104) U/L 03/18/19 Range/Units 06:22 RBC (3.80-5.40) M/uL Hgb (11.6-16.0) gm/dl MCV (81-97) fl MCHC (32-36) g/dl MPV (7.4-10.4) fl Neutrophils % (47-80) % Monocytes % (0-9) % Lymphocytes (16-45) % Random Glucose 173 H (74-109) mg/dL Alkaline Phosphatase (35-104) U/L Condition at Discharge: (2) Stable Discharge Medications - Discharge Medications Prescriptions: Methylprednisolone [Medrol Dose Pack] 4 mg PO DAILY 5 Days #21 tab.ds.pk Home Medications: Ambulatory Orders Aspirin [Aspirin EC] 81 mg PO DAILY #30 tablet. 01/19/15 [Last Taken 1 Day Ago ~03/16/19] Folic Acid 1 mg PO DAILY tab 01/26/16 [Last Taken 1 Day Ago ~03/16/19] Methotrexate Sodium [Methotrexate] 0.8 ml IM QWEEK ml 05/04/16 [Last Taken 1 Day Ago ~03/16/19] Cholecalciferol (Vitamin D3) [Vitamin D3] 4,000 unit PO DAILY 12/10/16 [Last Taken 1 Day Ago ~03/16/19] Acetaminophen [Tylenol 325Mg] 650 mg PO Q6H PRN tablet 03/19/19 [Last Taken Unknown] Ipratropium/Albuterol [Duoneb] 3 ml INH RESP.Q4H.WA ampul.neb 03/19/19 [Last Taken Unknown] Methylprednisolone [Medrol Dose Pack] 4 mg PO DAILY 5 Days #21 tab.ds.pk 03/19/19 [Last Taken Unknown] Discharge Plan - Discharge Instructions Instructions: Acute Bronchitis (GEN), COPD (Chronic Obstructive Pulmonary Disease) (DC), How to Use a Nebulizer (DC) Additional Instructions: Appointment with Dr. Platt at [facility] March 28 at 1:40pm. Continue Duoneb nebulizer treatments twice a day, supplies will be delivered to your home by [facility] [place] [phone] Contact your speech language pathologist prn about when to resume your methotrexate. Quality Measures - Quality Measures Quality Measures: Advance Directives, Documentation of Current Medications in Medical Record, Elder Maltreatment Screen and Follow-Up Plan, Screening for High Blood Pressure and F/U Documented - Current Medications Quality Measure: Measure #130: Documentation of Current Medications Documentation of Current Medications: <Current Medications Documented/Reviewed> [G8427] - Blood Pressure Screening Quality Measure: Screening for High Blood Pressure and Follow-Up Documented Does Patient Have Any of the Following: Active Dx of HTN Blood Pressure Classification: Hypertensive Reading Systolic Measurement: 136 Diastolic Measurement: 75 Screening for High Blood Pressure: Patient Exclusion, Hx of HTN [G9744] - Advance Directives Quality Measure: Measure #47: Care Plan Advance Directives Established: No Advance Directives Information Provided To Patient: Already Provided Advance Directives on File: No Living Will: No Power of Full Stack Web Developer: No Advance Care Planning: <Care Plan/Decision Maker Documented; Discussed & Documented> [1123F] - Elder Abuse Suspicion Index Screening: Elder Abuse Suspicion Index Screening Rely on people for bathing, dressing, shopping, banking, etc: No Prevented from getting food, clothes, medication, etc: No Made to feel shamed or threatened by someone: No Forced to sign papers or use money against will: No Feel afraid, touched in ways not wanted or hurt physically: No Poor eye contact, withdrawn, malnourished, cuts or bruises: No Screening Result: Negative result EASI Reference Information: Goldy BAKER, Dorina C, Michael D, Casandra Ritter.Development and validation of a tool to assist physicians identification of elder abuse: The Elder Abuse Suspicion Index (EASI ). Journal of Elder Abuse and Neglect, 2008; 20 (3): 276-300. - Elder Maltreatment Screen Quality Measures: Elder Maltreatment Screen and Follow-Up Plan Elder Maltreatment Screen: <Negative, No Follow-Up Plan Required> [G8734]
--- NOTE | 2019-03-19 11:21 | Physical Therapy Tx Note ---
Physical Therapy Tx Note - Treatment Note Tolerated: Good Total Time Spent With Patient: 15 Physical Therapy Tx Note: Detail (The patient was sitting on edge of bed when PT arrived. No shortness of breath was noted upon rest. The patient stated she felt much better today and was ambulatory without device. The patient was independent with sit to and from stand. The patient was ambulatory without device independently a distance of 40 feet x 1 with minimal shortness of breath. The patient had a side to side weight shift gait pattern with decreased heel to toe weight transfer. The patient reports this is typical of her gait, however she feels just a little weak. The patient is now independent with mobility without device( previous functional level.) The patient feels she is back to previous functional level an along with PT feels she no longer requires ongoing PT services. CM was notified.) Physical Therapy Problem List: Detail (1) Shortness of breath with ambulation 2) Impaired ambulation ie: patient using assistive device 3) Decreased ability to complete prolonged physical activity) Physical Therapy Goals: 1)The patient will ambulate without device community distances. (Goal Met- household distances). 2) Evaluate the patient's balance using an objective balance test (patient's balance is to previous functional level). 3) The patient will ambulate on stairs indpendently (Goal Not completed however patient felt she would be able to complete stairs at home without difficulty). Physical Therapy Plan: Pt. to discharge from [facility] no ongoing PT is required.
== END 2019-03-19 12:30 | disposition home or self-care (01) ==
LOC: ER 10:34 → MEDSURG 12:39 → INTOOBSV 12:39
PROVIDERS: ADMIT Internal Medicine; ATTEND Internal Medicine
DX: J44.1 Chronic obstructive pulmonary disease with (acute) exacerbation (principal); R06.00 Dyspnea, unspecified; J40 Bronchitis, not specified as acute or chronic; R53.1 Weakness; R05 Cough; J98.4 Other disorders of lung; I10 Essential (primary) hypertension; R32 Unspecified urinary incontinence; L40.50 Arthropathic psoriasis, unspecified
CPT/HCPCS: 85025; 80048; 80053; 87400; 84484; 85027; 83880; 71046; 94640 ×4; 94761 ×2; 93005; 93010; G0378 ×3; J0696 ×3; 94760; 96365; 96374; 97530; 99217; 99220; 99285; J1650; J2930

== ENCOUNTER 2019-03-22 10:58 | Emergency (ER) | payer MEDICARE ==
[2019-03-22] MEDS ORDERED: MECLIZINE 25 MG TABLET PO ONE (11:30)
[2019-03-22] MEDS ORDERED: 0.9 % SODIUM CHLORIDE 1,000 ML BAG IV ONE (11:30)
--- NOTE | 2019-03-22 11:31 | Emergency Department Record ---
History of Present Illness - General Chief Complaint: Headache Migraine Stated Complaint: HEADACHE,DIZZINES Time Seen by Provider: 03/22/19 11:00 Source: Patient Mode of Arrival: Ambulatory Limitations: No limitations - History of Present Illness Initial Comments: 73 yo female presents with frontal pressure of the head, congestion, dizziness, weakness all over. The symptoms started this morning. No chest pain or syncope. She was just discharged for pneumonia. Her cough and breathing are improved. NO nausea, vomiting or diarrhea. No fever since home. No edema. Dr Platt is her doctor. Complaint: Headache, Other Onset Description: Sudden Location: Frontal Quality: Aching Improves With: Nothing Worsens With: None Context: Recent URI Treatments Prior to Arrival: None - Related Data Previous Rx's Medication Instructions Recorded Aspirin [Aspirin EC] 81 mg PO DAILY #30 tablet. 01/19/15 Acetaminophen [Tylenol 325Mg] 650 mg PO Q6H PRN tablet 03/19/19 Ipratropium/Albuterol [Duoneb] 3 ml INH RESP.Q4H.CLAYTON cruz.neb 03/19/19 Methylprednisolone [Medrol Dose 4 mg PO DAILY 5 Days #21 tab.ds.pk 03/19/19 Pack] Allergies Allergy/AdvReac Type Severity Reaction Status Date / Time No Known Drug Allergies Allergy Verified 03/22/19 11:14 Travel Screening - Travel/Exposure Within Last 30 Days Have you traveled within the last 30 days?: No Review of Systems Constitutional: Reports: Malaise, Weakness. Denies: Chills, Fever Eyes: Denies: Eye discharge, Eye pain, Photophobia, Vision change ENT: Reports: Congestion. Denies: Dental pain, Ear pain, Epistaxis, Throat pain Respiratory: Reports: Cough, Wheezes. Denies: Dyspnea Cardiovascular: Denies: Chest pain, Edema, Palpitations, Syncope Endocrine: Reports: Fatigue. Denies: Polydipsia, Polyuria Gastrointestinal: Denies: Abdominal pain, Diarrhea, Nausea, Vomiting Genitourinary: Denies: Discharge, Dysuria Musculoskeletal: Denies: Arthralgia, Back pain, Myalgia Skin: Denies: Bruising, Change in color, Rash Neurological: Reports: Headache, Vertigo. 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 left - CARDIOVASCULAR Hx Cardio Disorders: Yes Hx Hypertension: Yes - NEURO Hx Neuro Disorders: No - GI Hx GI Disorders: Yes Hx GI Bleed: Yes Hx Rectal Bleeding: Yes - Hx Genitourinary Disorders: No Comment:: stress/urge incontinenece - ENDOCRINE Hx Endocrine Disorders: Yes Comment:: borderline diabetic - MUSCULOSKELETAL Hx Musculoskeletal Disorders: Yes Hx Arthritis: Yes (osteoarthritis and psoriatic) - PSYCH Hx Psych Problems: Yes Hx Anxiety: Yes Hx Depression: Yes - HEMATOLOGY/ONCOLOGY Hx Hematology/Oncology Disorders: No Family Medical History Any Significant Family History?: Yes Hx Diabetes: Mother, Brother/Sister Physical Exam - General General Appearance: Alert, Oriented x3, Cooperative, No acute distress Limitations: No limitations - Head Head exam: Atraumatic, Normal inspection - Eye Eye exam: Normal appearance, PERRL, EOMI. negative: Conjunctival injection, Nystagmus, Periorbital swelling, Scleral icterus - ENT ENT exam: Normal exam, Mucous membranes moist, Normal orophraynx, TM's normal bilaterally Ear exam: Normal external inspection Nasal Exam: Discharge, Sinus tenderness. negative: Active bleeding, Dried blood Mouth exam: Normal external inspection Teeth exam: Normal inspection Throat exam: Normal inspection. negative: Tonsillar erythema, Tonsillomegaly, Tonsillar exudate, R peritonsillar mass, L peritonsillar mass - Neck Neck exam: Normal inspection. negative: Lymphadenopathy - Respiratory Respiratory exam: Wheezes, Other (Normal work of breathing). negative: Accessory muscle use, Chest wall tenderness, Decreased breath sounds, Prolonged expiratory, Rales, Respiratory distress, Stridor - Cardiovascular Cardiovascular Exam: Regular rate, Normal rhythm, Normal heart sounds Peripheral Pulses: 2+: Radial (R), Radial (L) - GI/Abdominal GI/Abdominal exam: Soft. negative: Tenderness - Rectal Rectal exam: Deferred - exam: Deferred - Extremities Extremities exam: Normal inspection. negative: Pedal edema, Tenderness - Back Back exam: Denies: CVA tenderness (R), CVA tenderness (L) - Neurological Neurological exam: Alert, CN II-XII intact, Oriented X3. negative: Altered, Motor sensory deficit - Psychiatric Psychiatric exam: Normal affect, Normal mood - Skin Skin exam: Dry, Intact, Normal color, Warm Course Vital Signs 03/22/19 11:10 Temperature 97.5 F L Pulse Rate 98 H Respiratory 24 Rate Blood Pressure 149/84 Pulse Ox 95 - Reevaluation(s) Reevaluation #1: The vitals were reviewed. No acute abnormalities 03/22/19 11:25 03/22/19 12:36 The labs were reviewed No acute significant abnormalities 03/22/19 13:10 The HCT is negative for acute process 03/22/19 13:14 I discussed the results with the patient. She is no longer short of breath, her cough is improving, she is eating and drinking. I offered obv if she felt weak or unsafe at home. She is confident she is safe at home, she has meals, she has some support and she is ready for DC. We discussed returning anytime for a recheck if needed or any concerns. Medical Decision Making - Lab Data Result diagrams: 03/22/19 11:40 03/22/19 11:40 Disposition Disposition: Discharge Clinical Impression: Headache, Pneumonia, Weakness Disposition: Home, Self-Care Condition: (1) Good Instructions: Acute Headache (ED), Weakness (ED) Additional Instructions: Call your doctor for the next available follow up appointment Review this ER visit and the tests performed with your family doctor Return to the ER for a recheck if worse, any new concerns or questions Take the prescriptions provided as directed Forms: Patient Portal Access Time of Disposition: 13:16 Quality - Quality Measures Quality Measures: N/A - Blood Pressure Screening Does Patient Have Any of the Following: No Blood Pressure Classification: Pre-Hypertensive BP Reading Systolic Measurement: 149 Diastolic Measurement: 84 Screening for High Blood Pressure: < Pre-Hypertensive BP, F/U Documented > [G8950] Pre-Hypertensive Follow-up Interventions: Referral to alternative/primary care provider.
[2019-03-22 11:53] LABS: ABSOLUTE NEUTROPHIL COUNT 9.78; HEMATOCRIT 41.3 % (35.0-47.0); HEMOGLOBIN 13.6 gm/dl (11.6-16.0); MEAN CELL VOLUME 96.5 fl (81-97); MEAN CORPUSCULAR HEMOGLOBIN 31.8 pg (27-33); MEAN CORPUSCULAR HGB CONC 32.9 g/dl (32-36); MEAN PLATELET VOLUME 10.8 fl (7.4-10.4); PLATELET COUNT 368 K/uL (130-400); RED BLOOD COUNT 4.28 M/uL (3.80-5.40); RED CELL DISTRIBUTION WIDTH 13.7 % (11.5-14.5); WHITE BLOOD COUNT W/O DIFF 12.2 K/uL (4.2-12.2)
[2019-03-22 12:04] LABS: BLOOD UREA NITROGEN 30 mg/dL (8-23); CREATININE 0.9 mg/dL (0.5-0.9); EST GLOMERULAR FILTRATION RATE > 60 mL/min
[2019-03-22 12:05] LABS: TOTAL PROTEIN 7.5 g/dL (6.6-8.7)
[2019-03-22 12:07] LABS: GLUCOSE,RANDOM 185 mg/dL (74-109)
[2019-03-22 12:09] LABS: ALB/GLOB RATIO 1.4 (1.1-1.8); ALBUMIN 4.4 g/dL (4.0-5.0); ALKALINE PHOSPHATASE 96 U/L (35-104); ALT/SGPT 20 U/L (<33); AST/SGOT 16 U/L (10.0-35.0)
--- NOTE | 2019-03-25 05:41 | CT SCAN REPORT ---
DATE: 03/22/2019 at 1203. EXAM: CT OF THE BRAIN WITHOUT CONTRAST. HISTORY: DIZZINESS FOR FIVE DAYS WITH SINUS PRESSURE. TECHNIQUE: Routine noncontrast CT examination of the brain. COMPARISON: CT of the brain without contrast dated 10/02/2015. FINDINGS: The ventricles and subarachnoid spaces remain normal in size for age. Benign bilateral basal ganglia calcification redemonstrated. Minimal periventricular and subcortical white matter lucencies are questioned in each cerebral hemisphere. These are nonspecific but likely areas of chronic small- vessel ischemia. No other area of abnormally increased or decreased attenuation is noted throughout the brain substance. The villasenor-white interfaces are distinct. No abnormal extra-axial fluid collection is seen. No acute skull abnormality. No evidence of active inflammatory paranasal sinus disease. The visualized mastoid air cells are clear. The orbits as visualized are unremarkable. IMPRESSION: NO CT EVIDENCE OF AN ACUTE INTRACRANIAL ABNORMALITY. MINIMAL WHITE MATTER LUCENCIES QUESTIONED IN EACH CEREBRAL HEMISPHERE. THESE ARE NONSPECIFIC BUT LIKELY AREAS OF CHRONIC MICROVASCULAR ISCHEMIA. Job Number: [id number] MTDD
== END 2019-03-22 14:00 | disposition home or self-care (01) ==
LOC: ER 10:58
DX: J18.9 Pneumonia, unspecified organism (principal); R51 Headache; R42 Dizziness and giddiness; R53.1 Weakness; I10 Essential (primary) hypertension
CPT/HCPCS: 70450; 80053; 85027; 96360; 96361; 99284; J7030